=== PATIENT | male | born 1975 | race Caucasian/White ===

== ENCOUNTER 2016-07-14 16:07 | Emergency (ER) | payer MEDICARE, MEDICAID ==
[~2016-07-14] VITALS: Ht 180.3 cm; Wt 91.0 kg
[~2016-07-14 16:07] MED LIST: ALBU4TAB6 INH; ASPI-1035 PO; CINA90TA PO; CLOP75TA2 PO; FERR210T PO; FOLI1TAB87 PO; INSU100C3 SQ; LEVVL SQ; NATE120T PO; SEVE800T8 PO; SIMV40TA5 PO; TIOT18CA3 INH
[2016-07-14 16:26] VITALS: BP 167/80
== END 2016-07-14 20:25 | disposition home or self-care (01) ==
LOC: ER 18:51
DX: L08.9 Local infection of the skin and subcutaneous tissue, unspecified (principal); M79.645 Pain in left finger(s); I10 Essential (primary) hypertension; Z99.2 Dependence on renal dialysis; E11.9 Type 2 diabetes mellitus without complications; Z90.49 Acquired absence of other specified parts of digestive tract; Z90.89 Acquired absence of other organs; Z79.82 Long term (current) use of aspirin; Z79.4 Long term (current) use of insulin; Z79.899 Other long term (current) drug therapy
CPT/HCPCS: 99283

== ENCOUNTER 2016-09-27 15:23 | Emergency (ER) | payer MEDICARE, MEDICAID ==
[~2016-09-27] VITALS: Ht 180.3 cm; Wt 88.0 kg
[~2016-09-27 15:23] MED LIST changes: -ASPI-1035 PO; +ASPI-1159 PO; +CLOP75TA15 PO; -CLOP75TA2 PO
[2016-09-27 19:25] VITALS: BP 183/90
== END 2016-09-27 19:51 | disposition home or self-care (01) ==
LOC: ER 16:29
DX: S61.217D Laceration without foreign body of left little finger without damage to nail, subsequent encounter (principal); I25.2 Old myocardial infarction; Z90.49 Acquired absence of other specified parts of digestive tract; Z89.429 Acquired absence of other toe(s), unspecified side; Z98.49 Cataract extraction status, unspecified eye; E11.22 Type 2 diabetes mellitus with diabetic chronic kidney disease; E11.65 Type 2 diabetes mellitus with hyperglycemia; I12.0 Hypertensive chronic kidney disease with stage 5 chronic kidney disease or end stage renal disease; N18.6 End stage renal disease; Z99.2 Dependence on renal dialysis; Z79.4 Long term (current) use of insulin; W26.0XXD Contact with knife, subsequent encounter; Y92.098 Other place in other non-institutional residence as the place of occurrence of the external cause
CPT/HCPCS: 82962; 99283

== ENCOUNTER 2016-10-17 13:38 | Inpatient (IN) | payer MEDICARE, MEDICAID ==
[~2016-10-17] VITALS: Ht 180.3 cm; Wt 88.5 kg
[2016-10-17] MEDS ORDERED: DILTIAZEM HCL 5MG/ML 5ML VIAL IV ONE (14:15)
[2016-10-17 14:37] LABS: BASOPHILS % 0.5 % (0.0-2.0); EOSINOPHILS % 1.7 % (0.0-5.0); HEMATOCRIT. 41.2 % (42.0-52.0); HEMOGLOBIN. 14.3 g/dL (14.0-18.0); LYMPHOCYTES % 13.5 % (20.0-50.0); MEAN CORPUSCULAR HEMOGLOBIN 31.5 pg (28.0-32.0); MEAN CORPUSCULAR VOLUME 90.7 fL (80.0-94.0); MEAN PLATELET VOLUME 11.4 fl (7.4-10.4); MONOCYTES % 6.9 % (2.0-8.0); NEUTROPHILS % 77.4 % (40.0-76.0); PLATELET 66 x1000/uL (130-400); RED BLOOD CELL COUNT 4.54 mill/uL (4.7-6.1)
[2016-10-17 14:45] LABS: INR 1.1; PROTHROMBIN TIME 11.4 sec
[2016-10-17 14:55] LABS: CARBON DIOXIDE 26 mEq/L (21-32); CHLORIDE 91 mEq/L (98-107); TROPONIN I 0.04 ng/mL (0.00-0.04)
[2016-10-17] MEDS ORDERED: IPRATROPIUM/ALBUTEROL 0.5-3(2.5)MG/3ML NEB INH PRN (16:30)
[2016-10-17] MEDS ORDERED: GUAIFENESIN 200MG/10ML SUGAR FREE UDC PO PRN (16:30)
[2016-10-17] MEDS ORDERED: DEXTROSE 50% WATER 50ML SYRINGE IV PRN (16:30)
[2016-10-17] MEDS ORDERED: ONDANSETRON HCL 4MG/2ML VIAL IV PRN (16:30)
[2016-10-17] MEDS ORDERED: DIPHENHYDRAMINE 50MG/ML VIAL IV PRN (16:30)
[2016-10-17] MEDS ORDERED: ACETAMINOPHEN 325MG TABLET PO PRN (16:30)
[2016-10-17] MEDS ORDERED: INSULIN LISPRO 100 UNITS/ML SUBCUT SCH ×2 (18:45→21:00)
[2016-10-17] MEDS: BLOOD SUGAR DIAGNOSTIC STRIP TEST SCH ×2 (18:59→21:00)
[2016-10-17 20:00] VITALS: BP 156/71
[2016-10-17] MEDS: CARVEDILOL 3.125 MG TABLET PO SCH (20:57)
[2016-10-17 21:00] VITALS: BP 150/76
[2016-10-17] MEDS ORDERED: INSULIN DETEMIR UD 100 UNITS/ML SYR SUBCUT SCH (22:00)
[2016-10-17] MEDS: SODIUM CHLORIDE 0.9% INJ 3ML FLUSH IVF SCH (22:04)
[2016-10-17] MEDS: DILTIAZEM HCL 30MG TABLET PO SCH (22:04)
[2016-10-17] MEDS: INSULIN LISPRO 100 UNITS/ML SUBCUT SCH (22:13)
[2016-10-17] MEDS: INSULIN DETEMIR UD 100 UNITS/ML SYR SUBCUT SCH (22:13)
[2016-10-18] VITALS: BP 133/53
[2016-10-18 04:00] VITALS: BP 131/64
[2016-10-18] MEDS: SODIUM CHLORIDE 0.9% INJ 3ML FLUSH IVF SCH ×3 (05:45→21:04)
[2016-10-18] MEDS: DILTIAZEM HCL 30MG TABLET PO SCH ×3 (05:45→21:03)
[2016-10-18] MEDS: BLOOD SUGAR DIAGNOSTIC STRIP TEST SCH ×4 (06:21→21:02)
[2016-10-18] MEDS: INSULIN LISPRO 100 UNITS/ML SUBCUT SCH ×4 (08:26→21:04)
[2016-10-18] MEDS: ASPIRIN 81MG EC TABLET PO SCH (08:28)
[2016-10-18] MEDS: SEVELAMER CARBONATE 800 MG TABLET PO SCH ×3 (08:28→18:47)
[2016-10-18] MEDS: LOSARTAN POTASSIUM 50 MG TABLET PO SCH (08:28)
[2016-10-18] MEDS: FOLIC ACID/VITAMIN B COMP W-C TABLET PO SCH (08:29)
[2016-10-18] MEDS: CARVEDILOL 3.125 MG TABLET PO SCH ×2 (08:29→21:03)
[2016-10-18] MEDS: CINACALCET HCL 30MG TABLET PO SCH (08:29)
[2016-10-18] MEDS ORDERED: CLOPIDOGREL 75MG TABLET PO SCH (09:00)
[2016-10-18] MEDS ORDERED: POTASSIUM CHLORIDE 20MEQ TABLET SR PO NR (13:45)
[2016-10-18] MEDS ORDERED: LOPERAMIDE HCL 2MG CAPSULE PO SCH (16:15)
[2016-10-18 20:00] VITALS: BP 134/87
[2016-10-18] MEDS: ALPRAZOLAM 0.5 MG TABLET PO PRN (21:03)
[2016-10-18] MEDS: INSULIN DETEMIR UD 100 UNITS/ML SYR SUBCUT SCH (21:04)
[2016-10-19] VITALS (27 sets, daily range): BP systolic 123–183; BP diastolic 63–112
[2016-10-19] MEDS: SODIUM CHLORIDE 0.9% INJ 3ML FLUSH IVF SCH ×3 (05:21→22:00)
[2016-10-19 05:47] LABS: BASOPHILS % 0.6 % (0.0-2.0); EOSINOPHILS % 2.7 % (0.0-5.0); HEMATOCRIT. 42.7 % (42.0-52.0); HEMOGLOBIN. 14.6 g/dL (14.0-18.0); LYMPHOCYTES % 16.1 % (20.0-50.0); MEAN CORPUSCULAR HEMOGLOBIN 31.9 pg (28.0-32.0); MEAN PLATELET VOLUME 12.3 fl (7.4-10.4); NEUTROPHILS % 70.6 % (40.0-76.0); PLATELET 70 x1000/uL (130-400); RED BLOOD CELL COUNT 4.59 mill/uL (4.7-6.1); RED CELL DISTRIBUTION WIDTH 16.6 % (11.6-14.6)
[2016-10-19] MEDS: DILTIAZEM HCL 30MG TABLET PO SCH ×3 (06:24→21:03)
[2016-10-19] MEDS: BLOOD SUGAR DIAGNOSTIC STRIP TEST SCH ×4 (06:24→20:49)
[2016-10-19 07:03] LABS: CARBON DIOXIDE 25 mEq/L (21-32); CHLORIDE 95 mEq/L (98-107); CREATINE KINASE 28 IU/L (39-308); HDL CHOLESTEROL 24 mg/dL (40-59); LDL CHOLESTEROL 66 mg/dL (5-100); PHOSPHORUS 6.4 mg/dL (2.5-4.9)
[2016-10-19 07:07] LABS: TROPONIN I 0.75 ng/mL (0.00-0.04)
[2016-10-19] MEDS: ASPIRIN 81MG EC TABLET PO SCH (08:15)
[2016-10-19] MEDS: LOSARTAN POTASSIUM 50 MG TABLET PO SCH (08:15)
[2016-10-19] MEDS: FOLIC ACID/VITAMIN B COMP W-C TABLET PO SCH (08:15)
[2016-10-19] MEDS: CARVEDILOL 3.125 MG TABLET PO SCH (08:15)
[2016-10-19] MEDS: SEVELAMER CARBONATE 800 MG TABLET PO SCH ×3 (08:15→17:38)
[2016-10-19] MEDS: INSULIN LISPRO 100 UNITS/ML SUBCUT SCH ×4 (08:17→20:54)
[2016-10-19] MEDS: CINACALCET HCL 30MG TABLET PO SCH (08:27)
[2016-10-19] MEDS ORDERED: ASPIRIN/SOD BICARB/CITRIC ACID 324MG TAB EFF ONE (13:09)
[2016-10-19] MEDS ORDERED: MIDAZOLAM HCL 2 MG/2 ML VIAL ONE ×2 (13:19→13:45)
[2016-10-19] MEDS ORDERED: HEPARIN SODIUM 1,000 UNIT/1ML VIAL IV ONE ×3 (13:19→13:50)
[2016-10-19] MEDS ORDERED: FENTANYL CITRATE/PF 50MCG/ML 2ML VIAL ONE (13:19)
[2016-10-19] MEDS ORDERED: LIDOCAINE HCL 1% 20ML VIAL (Pyxis) INJ ONE (13:21)
[2016-10-19] MEDS ORDERED: IODIXANOL 320MG/ML 100 ML BOTTLE IV ONE ×2 (13:31→14:18)
[2016-10-19] MEDS ORDERED: IOVERSOL 240MG/ML 100ML BOTTLE IV ONE (13:53)
[2016-10-19] MEDS ORDERED: MORPHINE SULFATE 2 MG/ML CPJ (NOT FOR IM USE) IV PRN (15:00)
[2016-10-19] MEDS ORDERED: ACETAMINOPHEN 325MG TABLET PO PRN (15:00)
[2016-10-19] MEDS ORDERED: CLOPIDOGREL 75MG TABLET PO NR (15:00)
[2016-10-19] MEDS ORDERED: ATROPINE SULFATE 1MG/10ML SYR IV PRN (15:00)
[2016-10-19] MEDS ORDERED: METOPROLOL TARTRATE 25MG TABLET PO SCH (19:00)
[2016-10-19] MEDS: ALPRAZOLAM 0.5 MG TABLET PO PRN (19:00)
[2016-10-19] MEDS: INSULIN DETEMIR UD 100 UNITS/ML SYR SUBCUT SCH (21:05)
[2016-10-19] MEDS ORDERED: ATROPINE SULFATE 1MG/10ML SYR ONE (21:08)
[2016-10-20] VITALS (19 sets, daily range): BP systolic 114–161; BP diastolic 72–100
[2016-10-20] MEDS: DILTIAZEM HCL 30MG TABLET PO SCH ×3 (06:07→21:18)
[2016-10-20] MEDS: BLOOD SUGAR DIAGNOSTIC STRIP TEST SCH ×4 (06:07→20:16)
[2016-10-20] MEDS: INSULIN LISPRO 100 UNITS/ML SUBCUT SCH ×4 (07:01→21:16)
[2016-10-20 07:04] LABS: BASOPHILS % 0.3 % (0.0-2.0); HEMATOCRIT. 42.9 % (42.0-52.0); HEMOGLOBIN. 14.8 g/dL (14.0-18.0); LYMPHOCYTES % 17.6 % (20.0-50.0); MEAN CORPUSCULAR HEMOGLOBIN 31.7 pg (28.0-32.0); MEAN PLATELET VOLUME 11.5 fl (7.4-10.4); MONOCYTES % 8.4 % (2.0-8.0); NEUTROPHILS % 71.7 % (40.0-76.0); PLATELET 83 x1000/uL (130-400); RED BLOOD CELL COUNT 4.66 mill/uL (4.7-6.1); RED CELL DISTRIBUTION WIDTH 16.4 % (11.6-14.6)
[2016-10-20 07:26] LABS: CARBON DIOXIDE 24 mEq/L (21-32); CHLORIDE 94 mEq/L (98-107)
[2016-10-20 07:30] LABS: PHOSPHORUS 6.5 mg/dL (2.5-4.9)
[2016-10-20] MEDS: SEVELAMER CARBONATE 800 MG TABLET PO SCH ×4 (07:50→17:12)
[2016-10-20] MEDS: METOPROLOL TARTRATE 25MG TABLET PO SCH ×2 (09:00→20:16)
[2016-10-20] MEDS: ASPIRIN 81MG EC TABLET PO SCH (16:29)
[2016-10-20] MEDS: CLOPIDOGREL 75MG TABLET PO SCH (16:29)
[2016-10-20] MEDS: CINACALCET HCL 30MG TABLET PO SCH (16:30)
[2016-10-20] MEDS: FOLIC ACID/VITAMIN B COMP W-C TABLET PO SCH (16:30)
[2016-10-20] MEDS: LOSARTAN POTASSIUM 50 MG TABLET PO SCH (16:30)
[2016-10-20] MEDS: INSULIN DETEMIR UD 100 UNITS/ML SYR SUBCUT SCH (21:17)
[2016-10-21] VITALS (9 sets, daily range): BP systolic 102–153; BP diastolic 57–89
[2016-10-21] MEDS: DILTIAZEM HCL 30MG TABLET PO SCH ×2 (06:09→14:00)
[2016-10-21] MEDS: BLOOD SUGAR DIAGNOSTIC STRIP TEST SCH ×2 (06:09→11:30)
[2016-10-21 07:11] LABS: BASOPHILS % 0.5 % (0.0-2.0); HEMATOCRIT. 45.5 % (42.0-52.0); HEMOGLOBIN. 15.5 g/dL (14.0-18.0); LYMPHOCYTES % 13.7 % (20.0-50.0); MEAN CORPUSCULAR HEMOGLOBIN 31.5 pg (28.0-32.0); MEAN CORPUSCULAR VOLUME 92.5 fL (80.0-94.0); MEAN PLATELET VOLUME 12.8 fl (7.4-10.4); MONOCYTES % 8.1 % (2.0-8.0); NEUTROPHILS % 75.7 % (40.0-76.0); PLATELET 90 x1000/uL (130-400); RED BLOOD CELL COUNT 4.92 mill/uL (4.7-6.1); RED CELL DISTRIBUTION WIDTH 16.2 % (11.6-14.6)
[2016-10-21] MEDS: CLOPIDOGREL 75MG TABLET PO SCH (08:02)
[2016-10-21] MEDS: ASPIRIN 81MG EC TABLET PO SCH (08:03)
[2016-10-21] MEDS: CINACALCET HCL 30MG TABLET PO SCH (08:03)
[2016-10-21] MEDS: FOLIC ACID/VITAMIN B COMP W-C TABLET PO SCH (08:03)
[2016-10-21] MEDS: SEVELAMER CARBONATE 800 MG TABLET PO SCH ×2 (08:03→12:27)
[2016-10-21] MEDS: METOPROLOL TARTRATE 25MG TABLET PO SCH (08:03)
[2016-10-21] MEDS: LOSARTAN POTASSIUM 50 MG TABLET PO SCH (08:03)
[2016-10-21] MEDS: INSULIN LISPRO 100 UNITS/ML SUBCUT SCH ×2 (08:04→12:29)
== END 2016-10-21 14:50 | disposition home or self-care (01) | DRG 250 ==
LOC: ER 13:38 → ENRESERV 16:41 → 6WST 18:20 → 3WST 10-19 15:22
PROVIDERS: ADMIT Internal Medicine; ATTEND Internal Medicine
PROC: 5A1D60Z (ICD-10-PCS; 2016-10-18)
PROC: 4A023N7 Measurement of Cardiac Sampling and Pressure, Left Heart, Percutaneous Approach (ICD-10-PCS; principal; 2016-10-19)
PROC: B2111ZZ Fluoroscopy of Multiple Coronary Arteries using Low Osmolar Contrast (ICD-10-PCS; 2016-10-19)
PROC: B2131ZZ Fluoroscopy of Multiple Coronary Artery Bypass Grafts using Low Osmolar Contrast (ICD-10-PCS; 2016-10-19)
PROC: 02703ZZ Dilation of Coronary Artery, One Artery, Percutaneous Approach (ICD-10-PCS; 2016-10-19)
DX: T82.855A Stenosis of coronary artery stent, initial encounter (principal); N18.6 End stage renal disease; I21.4 Non-ST elevation (NSTEMI) myocardial infarction; E46 Unspecified protein-calorie malnutrition; I13.2 Hypertensive heart and chronic kidney disease with heart failure and with stage 5 chronic kidney disease, or end stage renal disease; N25.81 Secondary hyperparathyroidism of renal origin; I50.22 Chronic systolic (congestive) heart failure; I47.2 Ventricular tachycardia; I48.0 Paroxysmal atrial fibrillation; D63.1 Anemia in chronic kidney disease; E11.22 Type 2 diabetes mellitus with diabetic chronic kidney disease; E11.40 Type 2 diabetes mellitus with diabetic neuropathy, unspecified; E11.51 Type 2 diabetes mellitus with diabetic peripheral angiopathy without gangrene; E11.65 Type 2 diabetes mellitus with hyperglycemia; E78.00 Pure hypercholesterolemia, unspecified; E78.5 Hyperlipidemia, unspecified; D69.6 Thrombocytopenia, unspecified; F03.90 Unspecified dementia, unspecified severity, without behavioral disturbance, psychotic disturbance, mood disturbance, and anxiety; F41.9 Anxiety disorder, unspecified; I25.10 Atherosclerotic heart disease of native coronary artery without angina pectoris; I25.5 Ischemic cardiomyopathy; I48.2 Chronic atrial fibrillation; J44.9 Chronic obstructive pulmonary disease, unspecified; K57.90 Diverticulosis of intestine, part unspecified, without perforation or abscess without bleeding; Y83.1 Surgical operation with implant of artificial internal device as the cause of abnormal reaction of the patient, or of later complication, without mention of misadventure at the time of the procedure; Z83.3 Family history of diabetes mellitus; Z89.429 Acquired absence of other toe(s), unspecified side; Z99.2 Dependence on renal dialysis; I25.2 Old myocardial infarction; Z88.1 Allergy status to other antibiotic agents; Z90.49 Acquired absence of other specified parts of digestive tract; Z98.42 Cataract extraction status, left eye; Z98.41 Cataract extraction status, right eye; Z89.422 Acquired absence of other left toe(s)
CPT/HCPCS: 36415; 71010; 80048; 80053; 80061; 80069; 82550; 82553; 82962; 83036; 83690; 83735; 83880; 83921; 84100; 84443; 84484; 85025; 85347; 85379; 85610; 85730; 92920; 92978; 93005; 93306; 93459; 96374; 99291; C1725; C1726; C1753; C1769; C1887; C1893; J0461; J1644; J1815; J2250; J3010; J3490; J7030; Q9967

== ENCOUNTER 2016-10-24 09:28 | Inpatient (IN) | payer MEDICARE, MEDICAID ==
[~2016-10-24] VITALS: Ht 180.3 cm; Wt 90.7 kg
[2016-10-24 11:51] LABS: BASOPHILS % 0.7 % (0.0-2.0); EOSINOPHILS % 1.8 % (0.0-5.0); HEMATOCRIT. 42.3 % (42.0-52.0); HEMOGLOBIN. 14.4 g/dL (14.0-18.0); LYMPHOCYTES % 15.7 % (20.0-50.0); MEAN CORPUSCULAR HEMOGLOBIN 31.5 pg (28.0-32.0); MEAN CORPUSCULAR VOLUME 92.2 fL (80.0-94.0); MEAN PLATELET VOLUME 12.1 fl (7.4-10.4); MONOCYTES % 9.3 % (2.0-8.0); NEUTROPHILS % 72.5 % (40.0-76.0); PLATELET 77 x1000/uL (130-400); RED BLOOD CELL COUNT 4.59 mill/uL (4.7-6.1); RED CELL DISTRIBUTION WIDTH 16.5 % (11.6-14.6)
[2016-10-24 11:53] LABS: INR 1.1; PROTHROMBIN TIME 11.5 sec
[2016-10-24 12:00] LABS: CARBON DIOXIDE 27 mEq/L (21-32); CHLORIDE 94 mEq/L (98-107); TROPONIN I 0.09 ng/mL (0.00-0.04)
[2016-10-24] MEDS ORDERED: IOHEXOL-300 100 ML BOTTLE ONE (13:39)
[2016-10-24] MEDS ORDERED: SODIUM CHLORIDE 0.9% 10ML VIAL ONE (13:39)
[2016-10-24 14:25] VITALS: BP 174/69
[2016-10-24 14:45] VITALS: BP 171/89
[2016-10-24] MEDS ORDERED: ACETAMINOPHEN 325MG TABLET PO PRN (15:15)
[2016-10-24] MEDS ORDERED: DIPHENHYDRAMINE 50MG/ML VIAL IV PRN (15:15)
[2016-10-24] MEDS ORDERED: DEXTROSE 50% WATER 50ML SYRINGE IV PRN (15:15)
[2016-10-24] MEDS ORDERED: MAGNESIUM/ALUMINUM HYDROXIDE/SIMETHICONE 30ML UDC PO PRN (15:15)
[2016-10-24] MEDS ORDERED: ONDANSETRON HCL 4MG/2ML VIAL IV PRN (15:15)
[2016-10-24] MEDS ORDERED: ALPRAZOLAM 0.5 MG TABLET PO PRN (15:15)
[2016-10-24] MEDS: CLONIDINE 0.1MG TABLET PO PRN (15:58)
[2016-10-24 16:00] VITALS: BP 176/79
[2016-10-24] MEDS: BLOOD SUGAR DIAGNOSTIC STRIP TEST SCH ×2 (17:50→21:47)
[2016-10-24 18:00] VITALS: BP 126/68
[2016-10-24] MEDS: INSULIN LISPRO 100 UNITS/ML SUBCUT SCH ×2 (18:03→22:02)
[2016-10-24] MEDS: SEVELAMER CARBONATE 800 MG TABLET PO SCH (18:04)
[2016-10-24] MEDS ORDERED: LOPERAMIDE HCL 2MG CAPSULE PO PRN (19:30)
[2016-10-24 20:00] VITALS: BP 146/55
[2016-10-24] MEDS ORDERED: ATORVASTATIN CALCIUM 10MG TABLET PO SCH (21:00)
[2016-10-24] MEDS: SODIUM CHLORIDE 0.9% INJ 3ML FLUSH IVF SCH (21:54)
[2016-10-24] MEDS: ATORVASTATIN CALCIUM 20MG TABLET PO SCH (21:59)
[2016-10-24] MEDS: CARVEDILOL 3.125 MG TABLET PO SCH (22:00)
[2016-10-24] MEDS: INSULIN DETEMIR UD 100 UNITS/ML SYR SUBCUT SCH (22:03)
[2016-10-24 22:07] VITALS: BP 159/64
[2016-10-25] VITALS (12 sets, daily range): BP systolic 118–166; BP diastolic 45–90
[2016-10-25] MEDS: SODIUM CHLORIDE 0.9% INJ 3ML FLUSH IVF SCH ×3 (06:13→21:21)
[2016-10-25] MEDS: BLOOD SUGAR DIAGNOSTIC STRIP TEST SCH ×4 (06:13→21:17)
[2016-10-25 06:42] LABS: BASOPHILS % 0.6 % (0.0-2.0); EOSINOPHILS % 2.7 % (0.0-5.0); LYMPHOCYTES % 16.2 % (20.0-50.0); MEAN CORPUSCULAR HEMOGLOBIN 31.5 pg (28.0-32.0); MEAN CORPUSCULAR VOLUME 92.3 fL (80.0-94.0); MEAN PLATELET VOLUME 11.4 fl (7.4-10.4); MONOCYTES % 9.6 % (2.0-8.0); NEUTROPHILS % 70.9 % (40.0-76.0); PLATELET 71 x1000/uL (130-400); RED BLOOD CELL COUNT 4.44 mill/uL (4.7-6.1); RED CELL DISTRIBUTION WIDTH 16.3 % (11.6-14.6)
[2016-10-25] MEDS: INSULIN LISPRO 100 UNITS/ML SUBCUT SCH ×4 (07:20→21:00)
[2016-10-25] MEDS: SEVELAMER CARBONATE 800 MG TABLET PO SCH ×3 (07:20→17:49)
[2016-10-25] MEDS ORDERED: FOLIC ACID/VITAMIN B COMP W-C TABLET PO SCH (09:00)
[2016-10-25] MEDS: LOSARTAN POTASSIUM 50 MG TABLET PO SCH (09:56)
[2016-10-25] MEDS: FOLIC ACID/VITAMIN B COMP W-C TABLET PO SCH (09:56)
[2016-10-25] MEDS: ASPIRIN 81MG EC TABLET PO SCH (09:57)
[2016-10-25] MEDS: CLOPIDOGREL 75MG TABLET PO SCH (09:57)
[2016-10-25] MEDS: CARVEDILOL 3.125 MG TABLET PO SCH ×2 (09:57→21:41)
[2016-10-25] MEDS ORDERED: DESMOPRESSIN ACETATE 4MCG/ML AMP IV ONE ×2 (11:00)
[2016-10-25] MEDS ORDERED: LIDOCAINE HCL 1% 20ML VIAL (Pyxis) INJ ONE (11:01)
[2016-10-25] MEDS ORDERED: SODIUM BICARBONATE 4.2% 5 MEQ/10 ML DISP.SYRIN IV ONE (11:01)
[2016-10-25] MEDS ORDERED: DESMOPRESSIN ACETATE 28 MCG in SODIUM CHLORIDE 0.9% 50 ML IV SCH (11:30)
[2016-10-25] MEDS ORDERED: THROMBIN (BOVINE) 5000 UNITS/VIAL TOP SCH (13:30)
[2016-10-25] MEDS: ATORVASTATIN CALCIUM 20MG TABLET PO SCH (21:41)
[2016-10-25] MEDS: INSULIN DETEMIR UD 100 UNITS/ML SYR SUBCUT SCH (21:44)
[2016-10-26] VITALS (10 sets, daily range): BP systolic 131–178; BP diastolic 73–96
[2016-10-26] MEDS: SODIUM CHLORIDE 0.9% INJ 3ML FLUSH IVF SCH ×2 (06:15→14:15)
[2016-10-26] MEDS: BLOOD SUGAR DIAGNOSTIC STRIP TEST SCH ×2 (06:19→11:44)
[2016-10-26] MEDS: INSULIN LISPRO 100 UNITS/ML SUBCUT SCH ×2 (07:50→13:39)
[2016-10-26] MEDS: SEVELAMER CARBONATE 800 MG TABLET PO SCH ×2 (07:51→13:39)
[2016-10-26] MEDS: ASPIRIN 81MG EC TABLET PO SCH (08:31)
[2016-10-26] MEDS: CLOPIDOGREL 75MG TABLET PO SCH (08:31)
[2016-10-26] MEDS: CARVEDILOL 3.125 MG TABLET PO SCH (08:31)
[2016-10-26] MEDS: LOSARTAN POTASSIUM 50 MG TABLET PO SCH (08:31)
[2016-10-26] MEDS: FOLIC ACID/VITAMIN B COMP W-C TABLET PO SCH (08:31)
[2016-10-26 10:00] LABS: BASOPHILS % 0.6 % (0.0-2.0); EOSINOPHILS % 2.3 % (0.0-5.0); HEMATOCRIT. 40.9 % (42.0-52.0); HEMOGLOBIN. 13.9 g/dL (14.0-18.0); LYMPHOCYTES % 12.5 % (20.0-50.0); MEAN CORPUSCULAR HEMOGLOBIN 31.5 pg (28.0-32.0); MEAN CORPUSCULAR VOLUME 92.3 fL (80.0-94.0); MEAN PLATELET VOLUME 11.6 fl (7.4-10.4); MONOCYTES % 7.9 % (2.0-8.0); NEUTROPHILS % 76.7 % (40.0-76.0); PLATELET 71 x1000/uL (130-400); RED BLOOD CELL COUNT 4.42 mill/uL (4.7-6.1); RED CELL DISTRIBUTION WIDTH 16.1 % (11.6-14.6)
[2016-10-26] MEDS: CLONIDINE 0.1MG TABLET PO PRN (14:14)
== END 2016-10-26 16:56 | disposition home or self-care (01) | DRG 919 ==
LOC: ER 09:28 → 3WST 11:49 → EDBEDREQTM 11:58 → EDBEDREQ 11:58 → ENRESERV 12:05
PROVIDERS: ADMIT Internal Medicine; ATTEND Internal Medicine
PROC: 5A1D00Z (ICD-10-PCS; 2016-10-25)
PROC: 3E053GC Introduction of Other Therapeutic Substance into Peripheral Artery, Percutaneous Approach (ICD-10-PCS; principal; 2016-10-26)
DX: L76.32 Postprocedural hematoma of skin and subcutaneous tissue following other procedure (principal); N18.6 End stage renal disease; D68.59 Other primary thrombophilia; I42.9 Cardiomyopathy, unspecified; I50.22 Chronic systolic (congestive) heart failure; I13.2 Hypertensive heart and chronic kidney disease with heart failure and with stage 5 chronic kidney disease, or end stage renal disease; N25.81 Secondary hyperparathyroidism of renal origin; I72.4 Aneurysm of artery of lower extremity; E11.65 Type 2 diabetes mellitus with hyperglycemia; E11.21 Type 2 diabetes mellitus with diabetic nephropathy; D63.1 Anemia in chronic kidney disease; D69.6 Thrombocytopenia, unspecified; E11.22 Type 2 diabetes mellitus with diabetic chronic kidney disease; E11.40 Type 2 diabetes mellitus with diabetic neuropathy, unspecified; E78.5 Hyperlipidemia, unspecified; I25.10 Atherosclerotic heart disease of native coronary artery without angina pectoris; E11.51 Type 2 diabetes mellitus with diabetic peripheral angiopathy without gangrene; I48.0 Paroxysmal atrial fibrillation; Z83.3 Family history of diabetes mellitus; Z95.5 Presence of coronary angioplasty implant and graft; I25.2 Old myocardial infarction; Z79.4 Long term (current) use of insulin; Z88.1 Allergy status to other antibiotic agents; Z99.2 Dependence on renal dialysis; Z79.899 Other long term (current) drug therapy; Z90.49 Acquired absence of other specified parts of digestive tract; Z79.01 Long term (current) use of anticoagulants
CPT/HCPCS: 20611; 36002; 36415; 71010; 74177; 76857; 80048; 80053; 82962; 83036; 83880; 84484; 85025; 85610; 85651; 87040; 93005; 93971; 99285; A4216; J1815; J2597; J3490; J7030; Q9967

== ENCOUNTER 2016-11-18 21:56 | Emergency (ER) | payer MEDICARE, MEDICAID ==
[~2016-11-18] VITALS: Ht 180.3 cm; Wt 90.0 kg
[2016-11-18] MEDS ORDERED: KETOROLAC 60MG/2ML VIAL IM ONE (23:00)
[2016-11-18 23:49] VITALS: BP 131/86
== END 2016-11-19 00:20 | disposition home or self-care (01) ==
LOC: ER 22:00
DX: M75.91 Shoulder lesion, unspecified, right shoulder (principal); I12.0 Hypertensive chronic kidney disease with stage 5 chronic kidney disease or end stage renal disease; E11.22 Type 2 diabetes mellitus with diabetic chronic kidney disease; N18.6 End stage renal disease; I25.2 Old myocardial infarction; I48.91 Unspecified atrial fibrillation; Z99.2 Dependence on renal dialysis; Z88.1 Allergy status to other antibiotic agents; Z79.4 Long term (current) use of insulin; Z79.01 Long term (current) use of anticoagulants; Z79.82 Long term (current) use of aspirin
CPT/HCPCS: 73030; 96372; 99284; J1885

== ENCOUNTER 2017-01-04 07:38 | Day surgery (SDC) | payer MEDICARE, MEDICAID ==
[~2017-01-04] VITALS: Ht 180.3 cm; Wt 90.7 kg
[2017-01-04] MEDS ORDERED: ASPIRIN/SOD BICARB/CITRIC ACID 324MG TAB EFF ONE (08:57)
[2017-01-04 09:04] LABS: BASOPHILS % 0.4 % (0.0-2.0); EOSINOPHILS % 1.5 % (0.0-5.0); HEMATOCRIT. 41.7 % (42.0-52.0); HEMOGLOBIN. 14.1 g/dL (14.0-18.0); LYMPHOCYTES % 10.9 % (20.0-50.0); MEAN CORPUSCULAR HEMOGLOBIN 29.5 pg (28.0-32.0); MEAN CORPUSCULAR VOLUME 87.5 fL (80.0-94.0); MEAN PLATELET VOLUME 11.8 fl (7.4-10.4); MONOCYTES % 5.9 % (2.0-8.0); NEUTROPHILS % 81.3 % (40.0-76.0); PLATELET 81 x1000/uL (130-400); RED BLOOD CELL COUNT 4.77 mill/uL (4.7-6.1); RED CELL DISTRIBUTION WIDTH 16.3 % (11.6-14.6)
[2017-01-04] MEDS ORDERED: IODIXANOL 320MG/ML 100 ML BOTTLE IV ONE (09:07)
[2017-01-04] MEDS ORDERED: LIDOCAINE HCL 1% 20ML VIAL (Pyxis) INJ ONE (09:07)
[2017-01-04] MEDS ORDERED: FENTANYL CITRATE/PF 50MCG/ML 2ML VIAL ONE (09:09)
[2017-01-04] MEDS ORDERED: MIDAZOLAM HCL 2 MG/2 ML VIAL ONE ×2 (09:09→10:13)
[2017-01-04] MEDS ORDERED: LOSA1TAB34 PO (09:11)
[2017-01-04] MEDS ORDERED: FOLI0.8T23 PO (09:11)
[2017-01-04 09:13] LABS: INR 1.1; PARTIAL THROMBOPLASTIN TIME 26.1 sec (23.4-31.0); PROTHROMBIN TIME 11.7 sec (9.4-11.6)
[2017-01-04] MEDS ORDERED: NICARDIPINE 100MCG/ML 10ML VIAL (CATH LAB) IV ONE (10:00)
[2017-01-04] MEDS ORDERED: HEPARIN SODIUM 1,000 UNIT/1ML VIAL IV ONE (10:00)
[2017-01-04] MEDS ORDERED: NITROGLYCERIN 50MCG/ML 10ML VIAL (CATH LAB) IV ONE (10:00)
[2017-01-04] MEDS ORDERED: ATROPINE SULFATE 0.1MG/ML 10ML DISP.SYRIN ONE (10:04)
[2017-01-04] MEDS ORDERED: MORPHINE SULFATE 4 MG/ML CPJ (NOT FOR IM USE) IV PRN (16:00)
[2017-01-04] MEDS ORDERED: ONDANSETRON HCL 4MG/2ML VIAL IV PRN (16:00)
[2017-01-04] MEDS ORDERED: ACETAMINOPHEN 325MG TABLET PO PRN (16:00)
[2017-01-04] MEDS ORDERED: ATROPINE SULFATE 1MG/10ML SYR IV PRN (16:00)
== END 2017-01-04 15:00 | disposition home or self-care (01) ==
LOC: CCL 07:38
PROVIDERS: ATTEND Specialist
DX: I25.10 Atherosclerotic heart disease of native coronary artery without angina pectoris (principal)
CPT/HCPCS: 36415; 80048; 85025; 85610; 85730; 93458; 99152; 99153; C1769; C1887; C1893; J1644; J2250; J3010; J3490; Q9967; J0461

== ENCOUNTER 2017-01-11 09:26 | Emergency (ER) | payer MEDICARE, MEDICAID ==
[~2017-01-11] VITALS: Ht 180.3 cm; Wt 88.0 kg
[~2017-01-11 09:26] MED LIST changes: +FOLI0.8T23 PO; +LOSA1TAB34 PO
[2017-01-11 09:59] VITALS: BP 145/91
[2017-01-11 10:04] LABS: BASOPHILS % 0.8 % (0.0-2.0); EOSINOPHILS % 1.8 % (0.0-5.0); HEMATOCRIT. 37.1 % (42.0-52.0); HEMOGLOBIN. 12.6 g/dL (14.0-18.0); LYMPHOCYTES % 13.4 % (20.0-50.0); MEAN CORPUSCULAR HEMOGLOBIN 29.3 pg (28.0-32.0); MEAN CORPUSCULAR VOLUME 86.4 fL (80.0-94.0); MEAN PLATELET VOLUME 11.2 fl (7.4-10.4); MONOCYTES % 10.2 % (2.0-8.0); NEUTROPHILS % 73.8 % (40.0-76.0); PLATELET 83 x1000/uL (130-400); RED BLOOD CELL COUNT 4.29 mill/uL (4.7-6.1); RED CELL DISTRIBUTION WIDTH 15.8 % (11.6-14.6)
[2017-01-11 10:15] LABS: CARBON DIOXIDE 32 mEq/L (21-32); CHLORIDE 95 mEq/L (98-107)
[2017-01-11 10:36] LABS: INR 1.1; PROTHROMBIN TIME 11.7 sec (9.4-11.6)
== END 2017-01-11 11:45 | disposition home or self-care (01) ==
LOC: ER 09:50
DX: T82.838A Hemorrhage due to vascular prosthetic devices, implants and grafts, initial encounter (principal); Y84.1 Kidney dialysis as the cause of abnormal reaction of the patient, or of later complication, without mention of misadventure at the time of the procedure; E11.9 Type 2 diabetes mellitus without complications; I10 Essential (primary) hypertension; I48.91 Unspecified atrial fibrillation; I25.2 Old myocardial infarction; I25.10 Atherosclerotic heart disease of native coronary artery without angina pectoris; Z99.2 Dependence on renal dialysis; Z88.1 Allergy status to other antibiotic agents; Z79.4 Long term (current) use of insulin; Z79.82 Long term (current) use of aspirin; Z98.62 Peripheral vascular angioplasty status
CPT/HCPCS: 36415; 80053; 85025; 85610; 99284

== ENCOUNTER 2017-06-05 22:36 | Inpatient (IN) | payer MEDICARE, MEDICAID ==
[~2017-06-05] VITALS: Ht 180.3 cm; Wt 94.6 kg
[2017-06-05] MEDS ORDERED: ASPIRIN 81MG TABLET PO ONE (23:15)
[2017-06-05] MEDS ORDERED: LABETALOL HCL 20MG/4ML CARPUJECT IV ONE (23:15)
[2017-06-05] MEDS ORDERED: NITROGLYCERIN OINT 1GM/INCH UDPKT TD ONE (23:15)
[2017-06-05] MEDS ORDERED: ONDANSETRON HCL 4MG/2ML VIAL IV STA (23:24)
[2017-06-05] MEDS ORDERED: LABETALOL 5MG/ML SYR 20 MG/4 ML SYRINGE IV ONE (23:41)
[2017-06-06 00:27] LABS: BASOPHILS % 0.6 % (0.0-2.0); EOSINOPHILS % 1.3 % (0.0-5.0); HEMOGLOBIN. 13.5 g/dL (14.0-18.0); LYMPHOCYTES % 10.3 % (20.0-50.0); MEAN CORPUSCULAR HEMOGLOBIN 29.2 pg (28.0-32.0); MEAN CORPUSCULAR VOLUME 88.7 fL (80.0-94.0); MEAN PLATELET VOLUME 11.7 fl (7.4-10.4); MONOCYTES % 6.4 % (2.0-8.0); NEUTROPHILS % 81.4 % (40.0-76.0); PLATELET 116 x1000/uL (130-400); RED BLOOD CELL COUNT 4.62 mill/uL (4.7-6.1); RED CELL DISTRIBUTION WIDTH 16.8 % (11.6-14.6)
[2017-06-06] MEDS ORDERED: LEVOFLOXACIN 750MG PREMIX 150 ML IV NR (00:30)
[2017-06-06] MEDS ORDERED: INSULIN REGULAR (HUMULIN R) 300UNITS/3ML IV NR (00:30)
[2017-06-06 00:36] LABS: INR 1.1; PROTHROMBIN TIME 11.4 sec (9.4-11.6)
[2017-06-06 00:47] LABS: CHLORIDE 90 mEq/L (98-107); ETHANOL BLOOD < 10 mg/dL
[2017-06-06 00:53] LABS: TROPONIN I 0.09 ng/mL (0.00-0.04)
[2017-06-06 15:28] VITALS: BP 159/69
[2017-06-06 16:00] VITALS: BP 134/71
[2017-06-06] MEDS ORDERED: CLONIDINE 0.1MG TABLET PO PRN (16:00)
[2017-06-06] MEDS ORDERED: DEXTROSE 50% WATER 50ML SYRINGE IV PRN (16:45)
[2017-06-06] MEDS ORDERED: ONDANSETRON HCL 4MG/2ML VIAL IV PRN (16:45)
[2017-06-06] MEDS ORDERED: IPRATROPIUM/ALBUTEROL 0.5-3(2.5)MG/3ML NEB HHN PRN (16:45)
[2017-06-06] MEDS ORDERED: MORPHINE SULFATE 4 MG/ML CPJ (NOT FOR IM USE) IV NR (16:53)
[2017-06-06] MEDS ORDERED: HYDROCODONE/ACETAMINOPHEN 5/325MG TABLET PO PRN (17:00)
[2017-06-06] MEDS: BLOOD SUGAR DIAGNOSTIC STRIP TEST SCH ×2 (18:11→20:41)
[2017-06-06] MEDS: LOSARTAN POTASSIUM 25 MG TABLET PO SCH (18:17)
[2017-06-06] MEDS: SEVELAMER CARBONATE 800 MG TABLET PO SCH (18:17)
[2017-06-06] MEDS: CLOPIDOGREL 75MG TABLET PO SCH (18:18)
[2017-06-06] MEDS: INSULIN LISPRO 100 UNITS/ML SUBCUT SCH ×2 (18:18→20:42)
[2017-06-06 20:00] VITALS: BP 147/63
[2017-06-06] MEDS: CARVEDILOL 3.125 MG TABLET PO SCH (21:18)
[2017-06-06] MEDS: INSULIN GLARGINE UD 100 UNITS/ML SYR SUBCUT SCH (21:44)
[2017-06-07] VITALS: BP 149/73
[2017-06-07 04:00] VITALS: BP 118/66
[2017-06-07 07:05] LABS: BASOPHILS % 0.3 % (0.0-2.0); EOSINOPHILS % 1.7 % (0.0-5.0); HEMATOCRIT. 38.7 % (42.0-52.0); HEMOGLOBIN. 12.9 g/dL (14.0-18.0); LYMPHOCYTES % 9.3 % (20.0-50.0); MEAN CORPUSCULAR HEMOGLOBIN 29.5 pg (28.0-32.0); MEAN CORPUSCULAR VOLUME 88.6 fL (80.0-94.0); MEAN PLATELET VOLUME 11.3 fl (7.4-10.4); MONOCYTES % 7.7 % (2.0-8.0); PLATELET 104 x1000/uL (130-400); RED BLOOD CELL COUNT 4.37 mill/uL (4.7-6.1); RED CELL DISTRIBUTION WIDTH 16.6 % (11.6-14.6)
[2017-06-07] MEDS: BLOOD SUGAR DIAGNOSTIC STRIP TEST SCH ×4 (07:26→21:00)
[2017-06-07] MEDS: INSULIN LISPRO 100 UNITS/ML SUBCUT SCH ×4 (07:51→22:56)
[2017-06-07 08:00] VITALS: BP 136/72
[2017-06-07] MEDS: CINACALCET HCL 90MG TABLET PO SCH (08:18)
[2017-06-07] MEDS: SEVELAMER CARBONATE 800 MG TABLET PO SCH ×3 (08:18→17:54)
[2017-06-07] MEDS: LOSARTAN POTASSIUM 25 MG TABLET PO SCH ×2 (08:19→16:06)
[2017-06-07] MEDS: CLOPIDOGREL 75MG TABLET PO SCH (08:19)
[2017-06-07] MEDS: FOLIC ACID/VITAMIN B COMP W-C TABLET PO SCH (08:19)
[2017-06-07] MEDS: CARVEDILOL 3.125 MG TABLET PO SCH ×2 (08:20→22:46)
[2017-06-07] MEDS: ENOXAPARIN 30MG/0.3ML SYR SUBCUT SCH (08:20)
[2017-06-07 08:38] LABS: CHLORIDE 94 mEq/L (98-107)
[2017-06-07 08:48] LABS: CREATINE KINASE 33 IU/L (39-308); CREATINE KINASE MB FRACTION 2.2 ng/mL (0.5-3.6); HDL CHOLESTEROL 24 mg/dL (40-59); LDL CHOLESTEROL 71 mg/dL (5-100); TROPONIN I 0.07 ng/mL (0.00-0.04)
[2017-06-07] MEDS ORDERED: ASPIRIN 81MG EC TABLET PO SCH (09:00)
[2017-06-07] MEDS ORDERED: DOCUSATE SODIUM 250MG CAPSULE PO SCH (09:00)
[2017-06-07] MEDS: INSULIN GLARGINE UD 100 UNITS/ML SYR SUBCUT SCH ×2 (10:51→22:56)
[2017-06-07 12:00] VITALS: BP 157/77
[2017-06-07] MEDS ORDERED: ALPRAZOLAM 0.5 MG TABLET PO PRN (12:00)
[2017-06-07 16:00] VITALS: BP 142/81
[2017-06-07] MEDS: ASPIRIN 81MG EC TABLET PO SCH (16:06)
[2017-06-07 20:00] VITALS: BP 151/80
[2017-06-08 04:00] VITALS: BP 111/66
[2017-06-08 06:10] LABS: BASOPHILS % 0.5 % (0.0-2.0); EOSINOPHILS % 1.9 % (0.0-5.0); HEMATOCRIT. 38.8 % (42.0-52.0); HEMOGLOBIN. 12.9 g/dL (14.0-18.0); LYMPHOCYTES % 10.3 % (20.0-50.0); MEAN CORPUSCULAR HEMOGLOBIN 29.6 pg (28.0-32.0); MEAN PLATELET VOLUME 12.8 fl (7.4-10.4); MONOCYTES % 8.7 % (2.0-8.0); NEUTROPHILS % 78.6 % (40.0-76.0); PLATELET 129 x1000/uL (130-400); RED BLOOD CELL COUNT 4.36 mill/uL (4.7-6.1); RED CELL DISTRIBUTION WIDTH 16.5 % (11.6-14.6)
[2017-06-08] MEDS: INSULIN LISPRO 100 UNITS/ML SUBCUT SCH (06:32)
[2017-06-08] MEDS: BLOOD SUGAR DIAGNOSTIC STRIP TEST SCH (06:32)
[2017-06-08 07:11] LABS: CHLORIDE 102 mEq/L (98-107)
[2017-06-08 08:00] VITALS: BP 128/77
[2017-06-08] MEDS: CLOPIDOGREL 75MG TABLET PO SCH (08:04)
[2017-06-08] MEDS: FOLIC ACID/VITAMIN B COMP W-C TABLET PO SCH (08:04)
[2017-06-08] MEDS: CINACALCET HCL 90MG TABLET PO SCH (08:04)
[2017-06-08] MEDS: ENOXAPARIN 30MG/0.3ML SYR SUBCUT SCH (08:04)
[2017-06-08] MEDS: ASPIRIN 81MG EC TABLET PO SCH (08:04)
[2017-06-08] MEDS: LOSARTAN POTASSIUM 25 MG TABLET PO SCH (08:04)
[2017-06-08] MEDS: CARVEDILOL 3.125 MG TABLET PO SCH (08:22)
[2017-06-08 09:21] VITALS: BP 128/77
== END 2017-06-08 10:31 | disposition home or self-care (01) | DRG 291 ==
LOC: ER 22:36 → 7WST 06-06 01:48 → EDBEDREQ 06-06 01:56 → EDBEDREQDT 06-06 01:56 → EDBEDREQTM 06-06 01:56 → ENRESERV 06-06 13:01 → 7WST 06-06 15:50
PROVIDERS: ADMIT Internal Medicine; ATTEND Internal Medicine
PROC: 5A1D70Z Performance of Urinary Filtration, Intermittent, Less than 6 Hours Per Day (ICD-10-PCS; principal; 2017-06-07)
DX: I13.2 Hypertensive heart and chronic kidney disease with heart failure and with stage 5 chronic kidney disease, or end stage renal disease (principal); J96.00 Acute respiratory failure, unspecified whether with hypoxia or hypercapnia; E11.22 Type 2 diabetes mellitus with diabetic chronic kidney disease; D69.6 Thrombocytopenia, unspecified; E44.0 Moderate protein-calorie malnutrition; E87.1 Hypo-osmolality and hyponatremia; E87.8 Other disorders of electrolyte and fluid balance, not elsewhere classified; N18.6 End stage renal disease; I50.9 Heart failure, unspecified; I48.0 Paroxysmal atrial fibrillation; E78.00 Pure hypercholesterolemia, unspecified; F41.9 Anxiety disorder, unspecified; D72.829 Elevated white blood cell count, unspecified; I25.5 Ischemic cardiomyopathy; I42.0 Dilated cardiomyopathy; I25.10 Atherosclerotic heart disease of native coronary artery without angina pectoris; I25.2 Old myocardial infarction; Z95.5 Presence of coronary angioplasty implant and graft; Z99.2 Dependence on renal dialysis; Z88.1 Allergy status to other antibiotic agents; Z79.02 Long term (current) use of antithrombotics/antiplatelets; Z79.899 Other long term (current) drug therapy; Z90.49 Acquired absence of other specified parts of digestive tract; Z68.29 Body mass index [BMI] 29.0-29.9, adult
CPT/HCPCS: 36415; 71045; 80053; 80061; 82550; 82553; 82962; 83605; 83690; 83735; 84484; 85025; 85379; 85610; 87015; 87040; 87045; 87427; 87449; 87493; 87804; 93005; 93970; 96365; 96366; 96375; 99291; G0482; J1650; J1815; J1956; J2405; J3490; J7030

== ENCOUNTER 2017-10-01 20:20 | Inpatient (IN) | payer MEDICARE, MEDICAID ==
[~2017-10-01] VITALS: Ht 180.3 cm; Wt 91.6 kg
[2017-10-01] MEDS ORDERED: ACETAMINOPHEN WITH CODEINE 300/30MG TABLET PO ONE (23:30)
[2017-10-01] MEDS ORDERED: TETANUS, DIPHTHERIA, PERTUSSIS VAC/PF 0.5ML (>7YR OLD) IM ONE (23:30)
[2017-10-02] MEDS ORDERED: SODIUM CHLORIDE 0.9% 1,000 ML IV ONE (00:26)
[2017-10-02] MEDS ORDERED: VANCOMYCIN 1 G PREMIX 200 ML IV SCH (00:30)
[2017-10-02] MEDS ORDERED: DIPHENHYDRAMINE 50MG/ML VIAL IV ONE (00:30)
[2017-10-02] MEDS ORDERED: PIPERACILLIN/TAZOBACTAM 3.375GM/50ML PREMIX IV SCH (01:14)
[2017-10-02 02:43] LABS: BASOPHILS % 0.7 % (0.0-2.0); EOSINOPHILS % 1.7 % (0.0-5.0); HEMATOCRIT. 42.3 % (42.0-52.0); HEMOGLOBIN. 14.1 g/dL (14.0-18.0); LYMPHOCYTES % 17.5 % (20.0-50.0); MEAN CORPUSCULAR HEMOGLOBIN 28.5 pg (28.0-32.0); MEAN CORPUSCULAR VOLUME 85.5 fL (80.0-94.0); MEAN PLATELET VOLUME 11.6 fl (7.4-10.4); MONOCYTES % 6.7 % (2.0-8.0); NEUTROPHILS % 73.4 % (40.0-76.0); PLATELET 95 x1000/uL (130-400); RED BLOOD CELL COUNT 4.95 mill/uL (4.7-6.1); RED CELL DISTRIBUTION WIDTH 15.6 % (11.6-14.6)
[2017-10-02 02:50] LABS: CHLORIDE 94 mEq/L (98-107)
[2017-10-02] MEDS ORDERED: ACETAMINOPHEN 325MG TABLET PO PRN (06:45)
[2017-10-02] MEDS ORDERED: CLONIDINE 0.1MG TABLET PO PRN (06:45)
[2017-10-02] MEDS ORDERED: DOCUSATE SODIUM 100MG CAPSULE PO PRN (06:45)
[2017-10-02] MEDS ORDERED: MAGNESIUM/ALUMINUM HYDROXIDE/SIMETHICONE 30ML UDC PO PRN (06:45)
[2017-10-02] MEDS ORDERED: DEXTROSE 50% WATER 50ML SYRINGE IV PRN (06:45)
[2017-10-02] MEDS ORDERED: DIPHENHYDRAMINE 50MG/ML VIAL IV PRN (06:45)
[2017-10-02] MEDS ORDERED: ONDANSETRON HCL 4MG/2ML VIAL IV PRN (06:45)
[2017-10-02] MEDS ORDERED: ACETAMINOPHEN 650MG SUPP PR PRN (06:45)
[2017-10-02] MEDS ORDERED: GUAIFENESIN 200MG/10ML SUGAR FREE UDC PO PRN (06:45)
[2017-10-02] MEDS ORDERED: HYDROCODONE/ACETAMINOPHEN 5/325MG TABLET PO PRN (06:45)
[2017-10-02] MEDS ORDERED: ACETAMINOPHEN 650MG/20.3ML UDC GT PRN (06:45)
[2017-10-02] MEDS ORDERED: CEFTRIAXONE 1 G PREMIX 50 ML IV SCH (07:03)
[2017-10-02 07:32] LABS: INR 1.1; PROTHROMBIN TIME 11.7 sec (9.4-11.6)
[2017-10-02 08:20] VITALS: BP 151/83
[2017-10-02] MEDS: BLOOD SUGAR DIAGNOSTIC STRIP TEST SCH ×4 (09:00→20:38)
[2017-10-02] MEDS ORDERED: IPRATROPIUM/ALBUTEROL 0.5-3(2.5)MG/3ML NEB INH PRN (10:00)
[2017-10-02] MEDS: HYDROCODONE/ACETAMINOPHEN 10/325MG TABLET PO PRN ×2 (10:12→20:04)
[2017-10-02] MEDS: INSULIN LISPRO 100 UNITS/ML SUBCUT SCH ×4 (10:16→20:41)
[2017-10-02] MEDS: SODIUM CHLORIDE 0.9% INJ 3ML FLUSH IVF SCH ×2 (14:47→21:03)
[2017-10-02 16:00] VITALS: BP 139/73
[2017-10-02 18:10] LABS: CREATINE KINASE 38 IU/L (39-308)
[2017-10-02 18:11] LABS: CREATINE KINASE MB FRACTION 1.7 ng/mL (0.5-3.6)
[2017-10-02] MEDS ORDERED: ALPR-340 MT (18:45)
[2017-10-02] MEDS ORDERED: CARV3.1242 MT (18:45)
[2017-10-02 20:00] VITALS: BP 140/70
[2017-10-03] VITALS (7 sets, daily range): BP systolic 136–168; BP diastolic 64–77
[2017-10-03] MEDS: BLOOD SUGAR DIAGNOSTIC STRIP TEST SCH ×4 (06:19→20:09)
[2017-10-03] MEDS: SODIUM CHLORIDE 0.9% INJ 3ML FLUSH IVF SCH ×3 (06:19→21:19)
[2017-10-03] MEDS: INSULIN LISPRO 100 UNITS/ML SUBCUT SCH ×4 (06:24→20:24)
[2017-10-03 07:44] LABS: BASOPHILS % 0.6 % (0.0-2.0); EOSINOPHILS % 2.7 % (0.0-5.0); HEMATOCRIT. 40.4 % (42.0-52.0); HEMOGLOBIN. 13.5 g/dL (14.0-18.0); LYMPHOCYTES % 16.9 % (20.0-50.0); MEAN CORPUSCULAR HEMOGLOBIN 28.4 pg (28.0-32.0); MEAN PLATELET VOLUME 11.8 fl (7.4-10.4); MONOCYTES % 6.3 % (2.0-8.0); NEUTROPHILS % 73.5 % (40.0-76.0); PLATELET 108 x1000/uL (130-400); RED BLOOD CELL COUNT 4.75 mill/uL (4.7-6.1); RED CELL DISTRIBUTION WIDTH 15.7 % (11.6-14.6)
[2017-10-03] MEDS: CEFTRIAXONE 1 G PREMIX 50 ML IV SCH ×2 (08:00→14:07)
[2017-10-03 08:03] LABS: CHLORIDE 94 mEq/L (98-107)
[2017-10-03 08:25] LABS: HDL CHOLESTEROL 24 mg/dL (40-59)
[2017-10-03 08:29] LABS: LDL CHOLESTEROL 78 mg/dL (5-100)
[2017-10-03 17:00] LABS: CREATINE KINASE 28 IU/L (39-308)
[2017-10-03 17:01] LABS: CREATINE KINASE MB FRACTION 1.3 ng/mL (0.5-3.6)
[2017-10-03] MEDS ORDERED: IOHEXOL-300 100 ML BOTTLE ONE (17:24)
[2017-10-04] VITALS: BP 147/80
[2017-10-04 04:00] VITALS: BP 137/85
[2017-10-04] MEDS: SODIUM CHLORIDE 0.9% INJ 3ML FLUSH IVF SCH ×3 (05:44→21:41)
[2017-10-04] MEDS: INSULIN LISPRO 100 UNITS/ML SUBCUT SCH ×3 (06:50→20:57)
[2017-10-04] MEDS: BLOOD SUGAR DIAGNOSTIC STRIP TEST SCH ×4 (06:52→20:57)
[2017-10-04] MEDS: CEFTRIAXONE 1 G PREMIX 50 ML IV SCH (08:00)
[2017-10-04] MEDS ORDERED: PAPAVERINE HCL 30 MG/ML 2ML IV ONE (08:48)
[2017-10-04] MEDS ORDERED: BACITRACIN ZINC 15GM TUBE TOP ONE (08:48)
[2017-10-04] MEDS ORDERED: THROMBIN (BOVINE) 5000 UNITS/VIAL TOP ONE (08:49)
[2017-10-04] MEDS ORDERED: HEPARIN SODIUM 1,000 UNIT/1ML VIAL IV ONE (08:49)
[2017-10-04] MEDS ORDERED: BUPIVACAINE HCL/PF 0.5% (5MG/ML) 10ML ONE (08:49)
[2017-10-04] MEDS ORDERED: BACITRACIN 50,000 UNITS/VIAL ONE (08:50)
[2017-10-04] MEDS ORDERED: SODIUM CHLORIDE 0.9% 1,000 ML ONE (08:50)
[2017-10-04] MEDS ORDERED: GELATIN SPONGE,COMPRESSED SZ 100 ONE (08:50)
[2017-10-04] MEDS ORDERED: LIDOCAINE HCL/PF 1% 10 MG/ML 5ML VIAL ONE ×2 (08:50→09:40)
[2017-10-04] MEDS ORDERED: MORPHINE SULFATE 4 MG/ML CPJ (NOT FOR IM USE) IV PRN (09:15)
[2017-10-04] MEDS ORDERED: PROPOFOL 200MG/20ML VIAL IV ONE (09:40)
[2017-10-04] MEDS ORDERED: GLYCOPYRROLATE 0.2 MG/ML 2ML VIAL ONE (09:40)
[2017-10-04] MEDS ORDERED: FENTANYL CITRATE/PF 50MCG/ML 2ML VIAL ONE ×2 (09:40→10:07)
[2017-10-04] MEDS ORDERED: MIDAZOLAM HCL 2 MG/2 ML VIAL ONE (09:40)
[2017-10-04] MEDS ORDERED: SUCCINYLCHOLINE CHLORIDE 200MG/10ML VIAL IV ONE (09:40)
[2017-10-04] MEDS ORDERED: METOCLOPRAMIDE HCL 10MG/2ML VIAL ONE (09:41)
[2017-10-04] MEDS ORDERED: ONDANSETRON HCL 4MG/2ML VIAL ONE (09:41)
[2017-10-04] MEDS ORDERED: HEPARIN 1000 UNITS/ML 10ML ONE (10:07)
[2017-10-04] MEDS ORDERED: SODIUM CHLORIDE 0.9% 1,000 ML IV ONE (10:51)
[2017-10-04] MEDS ORDERED: ONDANSETRON HCL 4MG/2ML VIAL IV PRN (11:00)
[2017-10-04] MEDS ORDERED: MEPERIDINE HCL/PF 25MG/ML CPJ IV PRN (11:00)
[2017-10-04] MEDS ORDERED: HYDROMORPHONE HCL/PF 2MG/ML CPJ IV PRN (11:00)
[2017-10-04] MEDS ORDERED: ALBUTEROL 6.7GM HFA INHALER ORI PRN (12:45)
[2017-10-04] MEDS ORDERED: FOLIC ACID/VITAMIN B COMP W-C TABLET PO SCH (12:45)
[2017-10-04] MEDS ORDERED: CINACALCET HCL 90MG TABLET PO SCH (13:30)
[2017-10-04] MEDS: CARVEDILOL 3.125 MG TABLET PO SCH ×2 (15:01→20:50)
[2017-10-04 15:15] LABS: INR 1.1; PARTIAL THROMBOPLASTIN TIME 27.5 sec (23.4-31.0); PROTHROMBIN TIME 11.8 sec (9.4-11.6)
[2017-10-04 15:17] LABS: BASOPHILS % 0.3 % (0.0-2.0); EOSINOPHILS % 1.1 % (0.0-5.0); HEMATOCRIT. 39.6 % (42.0-52.0); HEMOGLOBIN. 13.2 g/dL (14.0-18.0); MEAN CORPUSCULAR HEMOGLOBIN 28.4 pg (28.0-32.0); MEAN CORPUSCULAR VOLUME 85.4 fL (80.0-94.0); MEAN PLATELET VOLUME 11.1 fl (7.4-10.4); MONOCYTES % 6.3 % (2.0-8.0); NEUTROPHILS % 82.3 % (40.0-76.0); PLATELET 100 x1000/uL (130-400); RED BLOOD CELL COUNT 4.63 mill/uL (4.7-6.1); RED CELL DISTRIBUTION WIDTH 15.8 % (11.6-14.6)
[2017-10-04 15:47] LABS: CHLORIDE 96 mEq/L (98-107)
[2017-10-04] MEDS ORDERED: CEPH-568 MT (15:57)
[2017-10-04] MEDS ORDERED: TRAM50TA94 MT (15:59)
[2017-10-04] MEDS ORDERED: FAMOTIDINE 20MG/2ML VIAL IV NR (18:45)
[2017-10-04] MEDS ORDERED: METOCLOPRAMIDE HCL 10MG/2ML VIAL IV NR (18:45)
[2017-10-04] MEDS ORDERED: ONDANSETRON HCL 4MG/2ML VIAL IV NR (18:45)
[2017-10-04 20:00] VITALS: BP 166/58
[2017-10-04] MEDS: HYDROCODONE/ACETAMINOPHEN 10/325MG TABLET PO PRN (21:00)
[2017-10-04] MEDS ORDERED: ATORVASTATIN CALCIUM 40MG TABLET PO SCH (21:00)
[2017-10-04 23:17] VITALS: BP 133/78
== END 2017-10-05 00:07 | disposition home health service (06) | DRG 252 ==
LOC: ER 20:20 → 8WST 10-02 02:48 → EDBEDREQTM 10-02 02:50 → EDBEDREQ 10-02 02:50 → EDBEDREQSVC 10-02 04:12 → EDBEDREQTM 10-02 04:12 → EDBEDREQSVC 10-02 08:28 → ENRESERV 10-02 09:00
PROVIDERS: ADMIT Family Medicine; ATTEND Family Medicine
PROC: 5A1D70Z Performance of Urinary Filtration, Intermittent, Less than 6 Hours Per Day (ICD-10-PCS; 2017-10-03)
PROC: 031 Upper Arteries, Bypass (ICD-10-PCS; principal; 2017-10-04 09:00)
PROC: 5A1D70Z Performance of Urinary Filtration, Intermittent, Less than 6 Hours Per Day (ICD-10-PCS; 2017-10-05)
DX: T82.898A Other specified complication of vascular prosthetic devices, implants and grafts, initial encounter (principal); N18.6 End stage renal disease; E11.52 Type 2 diabetes mellitus with diabetic peripheral angiopathy with gangrene; I96 Gangrene, not elsewhere classified; N25.81 Secondary hyperparathyroidism of renal origin; I12.0 Hypertensive chronic kidney disease with stage 5 chronic kidney disease or end stage renal disease; D63.1 Anemia in chronic kidney disease; I25.10 Atherosclerotic heart disease of native coronary artery without angina pectoris; I48.0 Paroxysmal atrial fibrillation; Y83.2 Surgical operation with anastomosis, bypass or graft as the cause of abnormal reaction of the patient, or of later complication, without mention of misadventure at the time of the procedure; L03.012 Cellulitis of left finger; D69.6 Thrombocytopenia, unspecified; E11.22 Type 2 diabetes mellitus with diabetic chronic kidney disease; E11.40 Type 2 diabetes mellitus with diabetic neuropathy, unspecified; Z99.2 Dependence on renal dialysis; Z79.02 Long term (current) use of antithrombotics/antiplatelets; Y92.89 Other specified places as the place of occurrence of the external cause; Z88.1 Allergy status to other antibiotic agents; Z90.49 Acquired absence of other specified parts of digestive tract; Z79.899 Other long term (current) drug therapy; I25.2 Old myocardial infarction; Z89.022 Acquired absence of left finger(s); Z98.49 Cataract extraction status, unspecified eye
CPT/HCPCS: 36415; 71045; 73140; 73206; 80053; 80061; 82550; 82553; 82962; 83036; 83605; 83880; 84484; 85025; 85610; 85730; 87040; 90471; 90715; 93005; 93922; 96361; 96365; 96375; 99285; J0330; J0696; J1200; J1644; J1815; J2250; J2405; J2440; J2543; J2704; J2765; J3010; J3370; J3490; J7030; J7040; Q9967

== ENCOUNTER 2017-10-09 06:44 | Emergency (ER) | payer MEDICARE, MEDICAID ==
[~2017-10-09] VITALS: Ht 180.3 cm; Wt 98.3 kg
[~2017-10-09 06:44] MED LIST changes: +ALPR-340 MT; +CARV3.1242 MT; +CEPH-568 MT; +TRAM50TA94 MT
[2017-10-09 08:35] LABS: BASOPHILS % 1.2 % (0.0-2.0); EOSINOPHILS % 2.1 % (0.0-5.0); HEMATOCRIT. 37.6 % (42.0-52.0); HEMOGLOBIN. 12.6 g/dL (14.0-18.0); LYMPHOCYTES % 15.4 % (20.0-50.0); MEAN CORPUSCULAR HEMOGLOBIN 28.6 pg (28.0-32.0); MEAN CORPUSCULAR VOLUME 85.1 fL (80.0-94.0); MEAN PLATELET VOLUME 11.2 fl (7.4-10.4); NEUTROPHILS % 74.3 % (40.0-76.0); PLATELET 100 x1000/uL (130-400); RED BLOOD CELL COUNT 4.42 mill/uL (4.7-6.1); RED CELL DISTRIBUTION WIDTH 15.9 % (11.6-14.6)
[2017-10-09 08:43] LABS: INR 1.1; PARTIAL THROMBOPLASTIN TIME 28.6 sec (23.4-31.0); PROTHROMBIN TIME 11.7 sec (9.4-11.6)
[2017-10-09 09:09] LABS: CHLORIDE 93 mEq/L (98-107)
[2017-10-09 13:38] VITALS: BP 157/93
== END 2017-10-09 13:59 | disposition home or self-care (01) ==
LOC: ER 08:00
DX: I87.1 Compression of vein (principal); I10 Essential (primary) hypertension; E11.9 Type 2 diabetes mellitus without complications; Z90.49 Acquired absence of other specified parts of digestive tract; Z90.89 Acquired absence of other organs; Z88.1 Allergy status to other antibiotic agents; Z79.4 Long term (current) use of insulin; Z79.82 Long term (current) use of aspirin
CPT/HCPCS: 36415; 80053; 85025; 85610; 85730; 93971; 99285

== ENCOUNTER 2017-11-02 13:05 | Emergency (ER) | payer MEDICAID, MEDICARE ==
[~2017-11-02] VITALS: Ht 172.7 cm; Wt 74.0 kg
[2017-11-02 14:44] LABS: BASOPHILS % 0.4 % (0.0-2.0); HEMATOCRIT. 40.9 % (42.0-52.0); HEMOGLOBIN. 13.8 g/dL (14.0-18.0); LYMPHOCYTES % 14.6 % (20.0-50.0); MEAN CORPUSCULAR HEMOGLOBIN 28.9 pg (28.0-32.0); MEAN CORPUSCULAR VOLUME 85.8 fL (80.0-94.0); MONOCYTES % 11.8 % (2.0-8.0); NEUTROPHILS % 70.2 % (40.0-76.0); PLATELET 69 x1000/uL (130-400); RED BLOOD CELL COUNT 4.76 mill/uL (4.7-6.1)
[2017-11-02 14:49] LABS: CHLORIDE 99 mEq/L (98-107)
[2017-11-02 14:50] LABS: PROTHROMBIN TIME 10.5 sec (9.1-11.1)
[2017-11-02 15:30] VITALS: BP 151/79
== END 2017-11-02 15:40 | disposition home or self-care (01) ==
LOC: ER 13:05
DX: I47.1 Supraventricular tachycardia (principal); I25.2 Old myocardial infarction; I12.0 Hypertensive chronic kidney disease with stage 5 chronic kidney disease or end stage renal disease; N18.6 End stage renal disease; I48.91 Unspecified atrial fibrillation; Z99.2 Dependence on renal dialysis; Z88.1 Allergy status to other antibiotic agents; Z79.899 Other long term (current) drug therapy
CPT/HCPCS: 36415; 71045; 80053; 83880; 84484; 85025; 85610; 93005; 99285

== ENCOUNTER 2017-12-07 14:42 | Emergency (ER) | payer MEDICARE, MEDICAID ==
[~2017-12-07] VITALS: Ht 180.3 cm; Wt 92.0 kg
[~2017-12-07 14:42] MED LIST changes: -CEPH-568 MT; -CINA90TA PO; -FERR210T PO; -FOLI1TAB87 PO; -NATE120T PO; -TIOT18CA3 INH; -TRAM50TA94 MT
[2017-12-07] MEDS ORDERED: HYDROCODONE/ACETAMINOPHEN 5/325MG TABLET PO ONE (19:45)
[2017-12-07] MEDS ORDERED: MORPHINE SULFATE 10 MG/ML CPJ IM ONE (21:15)
[2017-12-07] MEDS ORDERED: ONDANSETRON 4MG ODT PO ONE (21:15)
[2017-12-07 21:28] VITALS: BP 168/82
== END 2017-12-07 21:34 | disposition home or self-care (01) ==
LOC: ER 14:42
DX: N47.6 Balanoposthitis (principal); N48.89 Other specified disorders of penis; I25.2 Old myocardial infarction; E11.22 Type 2 diabetes mellitus with diabetic chronic kidney disease; N18.6 End stage renal disease; I48.91 Unspecified atrial fibrillation; R03.0 Elevated blood-pressure reading, without diagnosis of hypertension; Z99.2 Dependence on renal dialysis; Z79.01 Long term (current) use of anticoagulants; Z88.3 Allergy status to other anti-infective agents; Z90.49 Acquired absence of other specified parts of digestive tract; Z79.4 Long term (current) use of insulin
CPT/HCPCS: 96372; 99283; J2270; Q0162

== ENCOUNTER 2018-09-18 15:03 | Emergency (ER) | payer MEDICARE, MEDICAID ==
[~2018-09-18] VITALS: Ht 180.3 cm; Wt 91.0 kg
[~2018-09-18 15:03] MED LIST changes: -ASPI-1159 PO; +ASPI-1393 PO
[2018-09-18] MEDS ORDERED: CLINDAMYCIN 900 MG in DEXTROSE 5% WATER 50 ML IV ONE (16:15)
[2018-09-18] MEDS ORDERED: PIPERACILLIN/TAZOBACTAM 3.375GM/50ML PREMIX IV ONE (16:15)
[2018-09-18] MEDS ORDERED: PIPERACILLIN/TAZ 3.375G PREMIX 50 ML IV NR (16:30)
[2018-09-18 16:39] LABS: BASOPHILS % 0.4 % (0.0-2.0); EOSINOPHILS % 1.3 % (0.0-5.0); HEMATOCRIT. 39.2 % (42.0-52.0); HEMOGLOBIN. 13.1 g/dL (14.0-18.0); LYMPHOCYTES % 8.8 % (20.0-50.0); MEAN CORPUSCULAR HEMOGLOBIN 27.8 pg (28.0-32.0); MEAN PLATELET VOLUME 9.7 fl (7.4-10.4); MONOCYTES % 5.5 % (2.0-8.0); PLATELET 130 x1000/uL (130-400); RED BLOOD CELL COUNT 4.72 mill/uL (4.7-6.1)
[2018-09-18 16:45] LABS: CHLORIDE 97 mEq/L (98-107)
[2018-09-18 16:46] LABS: INR 1.1; PROTHROMBIN TIME 11.4 sec (9.6-11.0)
[2018-09-18] MEDS ORDERED: MORPHINE SULFATE 4 MG/ML CPJ (NOT FOR IM USE) IV ONE ×2 (17:00→22:00)
[2018-09-19] MEDS ORDERED: CLINDAMYCIN 900 MG in DEXTROSE 5% WATER 50 ML IV ONE ×3 (02:15→21:45)
[2018-09-19] MEDS ORDERED: PIPERACILLIN/TAZ 3.375G PREMIX 50 ML IV ONE ×2 (02:15→13:51)
[2018-09-19] MEDS ORDERED: ONDANSETRON HCL 4MG/2ML INJ IV ONE ×2 (04:15→18:00)
[2018-09-19] MEDS ORDERED: MORPHINE SULFATE 4 MG/ML CPJ (NOT FOR IM USE) IV ONE ×2 (04:15→18:00)
[2018-09-19] MEDS ORDERED: CLINDAMYCIN 900 MG in SODIUM CHLORIDE 0.9% 50 ML IV ONE (14:00)
[2018-09-19] MEDS ORDERED: KETOROLAC 30MG/ML VIAL IV ONE (15:30)
[2018-09-19 16:34] LABS: HEMATOCRIT. 37.8 % (42.0-52.0); HEMOGLOBIN. 12.4 g/dL (14.0-18.0); MEAN CORPUSCULAR HEMOGLOBIN 27.6 pg (28.0-32.0); MEAN CORPUSCULAR VOLUME 83.8 fL (80.0-94.0); PLATELET 127 x1000/uL (130-400); RED BLOOD CELL COUNT 4.51 mill/uL (4.7-6.1); RED CELL DISTRIBUTION WIDTH 16.7 % (11.6-14.6)
[2018-09-19 17:27] LABS: PLATELET ESTIMATE DECREASED
[2018-09-19 18:46] LABS: CHLORIDE 93 mEq/L (98-107)
[2018-09-19] MEDS ORDERED: PIPERACILLIN/TAZOBACTAM 3.375GM/50ML PREMIX IV ONE (21:45)
[2018-09-20 03:00] VITALS: BP 109/66
== END 2018-09-20 04:25 | disposition short-term general hospital (02) ==
LOC: ER 16:14
DX: I96 Gangrene, not elsewhere classified (principal); M86.8X4 Other osteomyelitis, hand; I25.2 Old myocardial infarction; E11.22 Type 2 diabetes mellitus with diabetic chronic kidney disease; N18.6 End stage renal disease; I47.1 Supraventricular tachycardia; Z99.2 Dependence on renal dialysis; Z90.49 Acquired absence of other specified parts of digestive tract; Z98.49 Cataract extraction status, unspecified eye; Z79.4 Long term (current) use of insulin
CPT/HCPCS: 36415; 73130; 73220; 80053; 83605; 85025; 85610; 85651; 86140; 87040; 96365; 96366; 96367; 96368; 96375; 96376; 99285; J1885; J2270; J2405; J2543; J3490; J7060

== ENCOUNTER 2018-10-03 20:42 | Inpatient (IN) | payer MEDICARE, MEDICAID ==
[~2018-10-03] VITALS: Ht 180.3 cm; Wt 93.9 kg
[2018-10-03 21:56] LABS: BASOPHILS % 0.7 % (0.0-2.0); EOSINOPHILS % 2.2 % (0.0-5.0); HEMOGLOBIN. 11.4 g/dL (14.0-18.0); LYMPHOCYTES % 10.8 % (20.0-50.0); MEAN CORPUSCULAR HEMOGLOBIN 27.7 pg (28.0-32.0); MEAN CORPUSCULAR VOLUME 85.3 fL (80.0-94.0); MEAN PLATELET VOLUME 10.6 fl (7.4-10.4); NEUTROPHILS % 78.3 % (40.0-76.0); PLATELET 92 x1000/uL (130-400); RED CELL DISTRIBUTION WIDTH 18.7 % (11.6-14.6)
[2018-10-03 22:01] LABS: CHLORIDE 98 mEq/L (98-107)
[2018-10-03] MEDS ORDERED: MORPHINE SULFATE 4 MG/ML CPJ (NOT FOR IM USE) IV ONE (22:45)
[2018-10-03] MEDS ORDERED: HYDROCODONE/ACETAMINOPHEN 5/325MG TABLET PO PRN (23:30)
[2018-10-03] MEDS ORDERED: CLONIDINE 0.1MG TABLET PO PRN (23:30)
[2018-10-03] MEDS ORDERED: MAGNESIUM/ALUMINUM HYDROXIDE/SIMETHICONE 30ML UDC PO PRN (23:30)
[2018-10-03] MEDS ORDERED: ACETAMINOPHEN 325MG TABLET PO PRN (23:30)
[2018-10-03] MEDS ORDERED: ONDANSETRON HCL 4MG/2ML INJ IV PRN (23:30)
[2018-10-03] MEDS ORDERED: DIPHENHYDRAMINE 50MG/ML VIAL IV PRN (23:30)
[2018-10-03] MEDS ORDERED: GUAIFENESIN 200MG/10ML SUGAR FREE UDC PO PRN (23:30)
[2018-10-03] MEDS ORDERED: NA PHOS,M-B/NA PHOS,DI-BA ENEMA 118ML PR PRN (23:30)
[2018-10-03] MEDS ORDERED: NITROGLYCERIN 0.4MG TABLET SL SL PRN (23:30)
[2018-10-03] MEDS ORDERED: DOCUSATE SODIUM 100MG CAPSULE PO PRN (23:30)
[2018-10-04] MEDS ORDERED: DEXTROSE 50% WATER 50ML SYRINGE IV PRN (04:00)
[2018-10-04] MEDS: HYDROMORPHONE HCL/PF 2MG/ML CPJ IV PRN (04:09)
[2018-10-04 04:15] VITALS: BP 171/91
[2018-10-04] MEDS ORDERED: FERR210T MT (05:12)
[2018-10-04] MEDS ORDERED: DOCU-150 PO (05:12)
[2018-10-04] MEDS ORDERED: INSU100I28 SQ (05:12)
[2018-10-04] MEDS ORDERED: INSASP SUBCUT (05:12)
[2018-10-04] MEDS ORDERED: GABA-531 PO (05:12)
[2018-10-04] MEDS: BLOOD SUGAR DIAGNOSTIC STRIP TEST SCH ×4 (06:08→20:20)
[2018-10-04] MEDS: INSULIN LISPRO 100 UNITS/ML SUBCUT SCH ×4 (06:13→20:19)
[2018-10-04] MEDS: CLOPIDOGREL 75MG TABLET PO SCH (08:27)
[2018-10-04 08:43] VITALS: BP 147/81
[2018-10-04] MEDS: CARVEDILOL 3.125 MG TABLET PO SCH ×2 (09:00→20:20)
[2018-10-04 12:00] VITALS: BP 137/86
[2018-10-04 12:35] LABS: BASOPHILS % 0.4 % (0.0-2.0); EOSINOPHILS % 2.2 % (0.0-5.0); HEMATOCRIT. 36.1 % (42.0-52.0); HEMOGLOBIN. 11.7 g/dL (14.0-18.0); LYMPHOCYTES % 12.2 % (20.0-50.0); MEAN CORPUSCULAR HEMOGLOBIN 27.8 pg (28.0-32.0); MEAN CORPUSCULAR VOLUME 85.6 fL (80.0-94.0); MONOCYTES % 6.9 % (2.0-8.0); NEUTROPHILS % 78.3 % (40.0-76.0); PLATELET 99 x1000/uL (130-400); RED BLOOD CELL COUNT 4.22 mill/uL (4.7-6.1); RED CELL DISTRIBUTION WIDTH 18.9 % (11.6-14.6)
[2018-10-04 12:41] LABS: CHLORIDE 99 mEq/L (98-107)
[2018-10-04 12:49] LABS: CREATINE KINASE 27 IU/L (39-308); LDL CHOLESTEROL 69 mg/dL (5-100)
[2018-10-04 12:50] LABS: HDL CHOLESTEROL 28 mg/dL (40-59)
[2018-10-04 12:52] LABS: CREATINE KINASE MB FRACTION 1.3 ng/mL (0.5-3.6)
[2018-10-04 16:02] VITALS: BP 105/51
[2018-10-04 16:18] LABS: CREATINE KINASE MB FRACTION 1.4 ng/mL (0.5-3.6)
[2018-10-04] MEDS: ASPIRIN 81MG EC TABLET PO SCH ×2 (16:53→17:00)
[2018-10-04] MEDS: LOSARTAN POTASSIUM 25 MG TABLET PO SCH ×2 (16:53→20:20)
[2018-10-04 20:00] VITALS: BP 127/76
[2018-10-04] MEDS: ATORVASTATIN CALCIUM 40MG TABLET PO SCH (20:19)
[2018-10-05] VITALS (10 sets, daily range): BP systolic 122–156; BP diastolic 48–98
[2018-10-05] MEDS: MORPHINE SULFATE 2 MG/ML CPJ (NOT FOR IM USE) IV PRN ×2 (02:52→23:34)
[2018-10-05 06:05] LABS: BASOPHILS % 0.4 % (0.0-2.0); EOSINOPHILS % 3.2 % (0.0-5.0); HEMATOCRIT. 36.7 % (42.0-52.0); LYMPHOCYTES % 13.5 % (20.0-50.0); MEAN CORPUSCULAR HEMOGLOBIN 27.8 pg (28.0-32.0); MEAN CORPUSCULAR VOLUME 85.4 fL (80.0-94.0); MEAN PLATELET VOLUME 11.1 fl (7.4-10.4); NEUTROPHILS % 72.9 % (40.0-76.0); PLATELET 97 x1000/uL (130-400); RED CELL DISTRIBUTION WIDTH 18.7 % (11.6-14.6)
[2018-10-05] MEDS: BLOOD SUGAR DIAGNOSTIC STRIP TEST SCH ×3 (06:23→20:21)
[2018-10-05] MEDS: INSULIN LISPRO 100 UNITS/ML SUBCUT SCH ×4 (06:25→20:57)
[2018-10-05 06:46] LABS: CHLORIDE 99 mEq/L (98-107)
[2018-10-05 06:58] LABS: CREATINE KINASE MB FRACTION 1.2 ng/mL (0.5-3.6); LDL CHOLESTEROL 73 mg/dL (5-100)
[2018-10-05 06:59] LABS: CREATINE KINASE 17 IU/L (39-308); HDL CHOLESTEROL 27 mg/dL (40-59)
[2018-10-05] MEDS: CLOPIDOGREL 75MG TABLET PO SCH (08:46)
[2018-10-05] MEDS: LOSARTAN POTASSIUM 25 MG TABLET PO SCH ×2 (08:49→20:56)
[2018-10-05] MEDS: ASPIRIN 81MG EC TABLET PO SCH ×2 (08:49→18:40)
[2018-10-05] MEDS: CARVEDILOL 3.125 MG TABLET PO SCH ×2 (08:49→20:56)
[2018-10-05] MEDS ORDERED: HEPARIN SODIUM 1,000 UNIT/1ML VIAL IV ONE (09:19)
[2018-10-05] MEDS ORDERED: NITROGLYCERIN 50MCG/ML 10ML VIAL (CATH LAB) IV ONE (09:19)
[2018-10-05] MEDS: HYDROMORPHONE HCL/PF 2MG/ML CPJ IV PRN (10:33)
[2018-10-05] MEDS ORDERED: MIDAZOLAM HCL 2 MG/2 ML VIAL ONE (14:45)
[2018-10-05] MEDS ORDERED: ASPIRIN/SOD BICARB/CITRIC ACID 324MG TAB EFF ONE (14:46)
[2018-10-05] MEDS ORDERED: LIDOCAINE HCL 1% 20ML VIAL (Pyxis) INJ ONE (14:46)
[2018-10-05] MEDS ORDERED: IODIXANOL 320MG/ML 100 ML BOTTLE IV ONE (14:46)
[2018-10-05] MEDS ORDERED: FENTANYL CITRATE/PF 50MCG/ML 2ML VIAL ONE (14:47)
[2018-10-05] MEDS ORDERED: IOHEXOL-300 100 ML BOTTLE ONE ×2 (15:33→15:54)
[2018-10-05] MEDS ORDERED: IODIXANOL 320MG/ML 200ML BOTTLE ONE (15:54)
[2018-10-05] MEDS ORDERED: CLOPIDOGREL 75MG TABLET ONE (16:06)
[2018-10-05] MEDS ORDERED: CLOPIDOGREL 75MG TABLET PO ONE (16:15)
[2018-10-05] MEDS ORDERED: ACETAMINOPHEN 325MG TABLET PO PRN (16:15)
[2018-10-05] MEDS ORDERED: ONDANSETRON HCL 4MG/2ML INJ IV PRN (16:15)
[2018-10-05] MEDS ORDERED: ATROPINE SULFATE 1MG/10ML SYR IV PRN (16:15)
[2018-10-05] MEDS ORDERED: MORPHINE SULFATE 2 MG/ML CPJ (NOT FOR IM USE) IV PRN (16:15)
[2018-10-05] MEDS: ATORVASTATIN CALCIUM 40MG TABLET PO SCH (20:55)
[2018-10-06] VITALS (8 sets, daily range): BP systolic 109–152; BP diastolic 70–82
[2018-10-06] MEDS: BLOOD SUGAR DIAGNOSTIC STRIP TEST SCH ×2 (06:21→12:13)
[2018-10-06 06:23] LABS: BASOPHILS % 0.4 % (0.0-2.0); EOSINOPHILS % 2.4 % (0.0-5.0); HEMATOCRIT. 37.2 % (42.0-52.0); HEMOGLOBIN. 12.1 g/dL (14.0-18.0); LYMPHOCYTES % 12.3 % (20.0-50.0); MEAN CORPUSCULAR HEMOGLOBIN 27.5 pg (28.0-32.0); MEAN CORPUSCULAR VOLUME 84.9 fL (80.0-94.0); MEAN PLATELET VOLUME 10.8 fl (7.4-10.4); MONOCYTES % 9.3 % (2.0-8.0); NEUTROPHILS % 75.6 % (40.0-76.0); PLATELET 98 x1000/uL (130-400); RED BLOOD CELL COUNT 4.39 mill/uL (4.7-6.1)
[2018-10-06] MEDS: MORPHINE SULFATE 2 MG/ML CPJ (NOT FOR IM USE) IV PRN (06:34)
[2018-10-06] MEDS: INSULIN LISPRO 100 UNITS/ML SUBCUT SCH ×2 (07:20→12:44)
[2018-10-06] MEDS: CARVEDILOL 3.125 MG TABLET PO SCH (08:23)
[2018-10-06] MEDS: ASPIRIN 81MG EC TABLET PO SCH ×2 (08:24→12:43)
[2018-10-06] MEDS: CLOPIDOGREL 75MG TABLET PO SCH ×2 (08:24→12:43)
[2018-10-06] MEDS: LOSARTAN POTASSIUM 25 MG TABLET PO SCH (08:24)
== END 2018-10-06 13:40 | disposition home or self-care (01) | DRG 246 ==
LOC: ER 21:00 → EDBEDREQ 21:25 → EDBEDREQTM 22:48 → EDBEDREQ 22:48 → ENRESERV 10-04 01:48 → 8WST 10-04 03:26 → 3WST 10-05 16:37
PROVIDERS: ADMIT Hospitalist; ATTEND Hospitalist
PROC: 5A1D70Z Performance of Urinary Filtration, Intermittent, Less than 6 Hours Per Day (ICD-10-PCS; 2018-10-04)
PROC: 027034Z Dilation of Coronary Artery, One Artery with Drug-eluting Intraluminal Device, Percutaneous Approach (ICD-10-PCS; principal; 2018-10-05)
PROC: B2111ZZ Fluoroscopy of Multiple Coronary Arteries using Low Osmolar Contrast (ICD-10-PCS; 2018-10-05)
PROC: 4A023N7 Measurement of Cardiac Sampling and Pressure, Left Heart, Percutaneous Approach (ICD-10-PCS; 2018-10-05)
PROC: 5A1D70Z Performance of Urinary Filtration, Intermittent, Less than 6 Hours Per Day (ICD-10-PCS; 2018-10-05)
DX: I13.2 Hypertensive heart and chronic kidney disease with heart failure and with stage 5 chronic kidney disease, or end stage renal disease (principal); N18.6 End stage renal disease; I50.33 Acute on chronic diastolic (congestive) heart failure; N25.81 Secondary hyperparathyroidism of renal origin; I47.1 Supraventricular tachycardia; D63.1 Anemia in chronic kidney disease; E11.22 Type 2 diabetes mellitus with diabetic chronic kidney disease; E11.40 Type 2 diabetes mellitus with diabetic neuropathy, unspecified; E78.00 Pure hypercholesterolemia, unspecified; E78.1 Pure hyperglyceridemia; E78.5 Hyperlipidemia, unspecified; F41.9 Anxiety disorder, unspecified; I25.10 Atherosclerotic heart disease of native coronary artery without angina pectoris; D69.6 Thrombocytopenia, unspecified; I48.0 Paroxysmal atrial fibrillation; I25.2 Old myocardial infarction; Z89.022 Acquired absence of left finger(s); Z95.5 Presence of coronary angioplasty implant and graft; Z99.2 Dependence on renal dialysis; Z83.3 Family history of diabetes mellitus; Z79.4 Long term (current) use of insulin; Z88.1 Allergy status to other antibiotic agents; Z79.82 Long term (current) use of aspirin; Z79.899 Other long term (current) drug therapy
CPT/HCPCS: 36415; 71045; 80048; 80061; 82550; 82553; 82962; 83735; 83880; 84484; 85347; 85379; 92928; 93005; 93306; 93458; 96374; 97162; 97166; 99285; C1769; C1874; C1887; C1893; J1170; J1200; J1644; J1815; J2250; J2270; J3010; J3490; J7040; Q9967

== ENCOUNTER 2019-03-12 16:28 | Inpatient (IN) | payer MEDICARE, MEDICAID ==
[~2019-03-12] VITALS: Ht 180.3 cm; Wt 90.7 kg
[~2019-03-12 16:28] MED LIST changes: -ALBU4TAB6 INH; -ALPR-340 MT; +DOCU-150 PO; +FERR210T MT; +GABA-531 PO; +INSASP SUBCUT; -INSU100C3 SQ; +INSU100I28 SQ; -LEVVL SQ
[2019-03-12] MEDS ORDERED: ASPIRIN 81MG TABLET PO ONE (17:15)
[2019-03-12 17:53] LABS: BASOPHILS % 0.7 % (0.0-2.0); EOSINOPHILS % 1.3 % (0.0-5.0); HEMATOCRIT. 42.9 % (42.0-52.0); HEMOGLOBIN. 14.3 g/dL (14.0-18.0); LYMPHOCYTES % 12.7 % (20.0-50.0); MEAN CORPUSCULAR HEMOGLOBIN 28.7 pg (28.0-32.0); MEAN CORPUSCULAR VOLUME 86.5 fL (80.0-94.0); MEAN PLATELET VOLUME 11.6 fl (7.4-10.4); MONOCYTES % 7.4 % (2.0-8.0); NEUTROPHILS % 77.9 % (40.0-76.0); PLATELET 111 x1000/uL (130-400); RED BLOOD CELL COUNT 4.96 mill/uL (4.7-6.1); RED CELL DISTRIBUTION WIDTH 17.2 % (11.6-14.6)
[2019-03-12 17:59] LABS: CHLORIDE 95 mEq/L (98-107)
[2019-03-12 18:11] LABS: PARTIAL THROMBOPLASTIN TIME 29.1 sec (23.4-31.0); PROTHROMBIN TIME 10.8 sec (9.6-11.0)
[2019-03-12] MEDS ORDERED: DEXTROSE 50% WATER 50ML SYRINGE IV PRN (19:00)
[2019-03-12] MEDS ORDERED: ONDANSETRON HCL 4MG/2ML INJ IV PRN (19:00)
[2019-03-12] MEDS ORDERED: NITROGLYCERIN 0.4MG TABLET SL SL ONE (19:00)
[2019-03-12] MEDS ORDERED: MORPHINE SULFATE 2 MG/ML CPJ (NOT FOR IM USE) IV PRN (19:00)
[2019-03-12] MEDS ORDERED: ACETAMINOPHEN 325MG TABLET PO PRN (19:00)
[2019-03-12] MEDS ORDERED: NITROGLYCERIN 0.4MG TABLET SL SL PRN (19:30)
[2019-03-12] MEDS: BLOOD SUGAR DIAGNOSTIC STRIP TEST SCH (22:14)
[2019-03-12] MEDS: ATORVASTATIN CALCIUM 10MG TABLET PO SCH (22:14)
[2019-03-12] MEDS: INSULIN LISPRO 100 UNITS/ML SUBCUT SCH (22:18)
[2019-03-12 23:00] VITALS: BP 159/90
[2019-03-13] VITALS (7 sets, daily range): BP systolic 149–163; BP diastolic 62–94
[2019-03-13] MEDS ORDERED: DIPHENHYDRAMINE 50MG CAPSULE PO PRN (01:00)
[2019-03-13] MEDS: BLOOD SUGAR DIAGNOSTIC STRIP TEST SCH ×4 (07:20→20:50)
[2019-03-13] MEDS: INSULIN LISPRO 100 UNITS/ML SUBCUT SCH ×4 (07:50→20:59)
[2019-03-13] MEDS: HEPARIN 5000 UNITS/ML VIAL SUBCUT SCH ×2 (09:00→20:49)
[2019-03-13 09:39] LABS: CHLORIDE 99 mEq/L (98-107)
[2019-03-13 10:02] LABS: BASOPHILS % 0.8 % (0.0-2.0); EOSINOPHILS % 1.9 % (0.0-5.0); HEMATOCRIT. 41.8 % (42.0-52.0); HEMOGLOBIN. 13.8 g/dL (14.0-18.0); LYMPHOCYTES % 15.6 % (20.0-50.0); MEAN CORPUSCULAR HEMOGLOBIN 28.8 pg (28.0-32.0); MEAN CORPUSCULAR VOLUME 87.1 fL (80.0-94.0); MEAN PLATELET VOLUME 11.3 fl (7.4-10.4); MONOCYTES % 11.4 % (2.0-8.0); NEUTROPHILS % 70.3 % (40.0-76.0); PLATELET 103 x1000/uL (130-400); RED CELL DISTRIBUTION WIDTH 17.5 % (11.6-14.6)
[2019-03-13] MEDS ORDERED: IODIXANOL 320MG/ML 100 ML BOTTLE IV ONE (12:13)
[2019-03-13] MEDS ORDERED: LIDOCAINE HCL 1% 20ML VIAL (Pyxis) INJ ONE (12:13)
[2019-03-13] MEDS ORDERED: ASPIRIN/SOD BICARB/CITRIC ACID 324MG TAB EFF ONE (12:14)
[2019-03-13] MEDS ORDERED: MIDAZOLAM HCL 2 MG/2 ML VIAL ONE (12:59)
[2019-03-13] MEDS ORDERED: FENTANYL CITRATE/PF 50MCG/ML 2ML VIAL ONE (12:59)
[2019-03-13] MEDS ORDERED: ATROPINE SULFATE 1MG/10ML SYR IV PRN (13:30)
[2019-03-13] MEDS ORDERED: ONDANSETRON HCL 4MG/2ML INJ IV PRN (13:30)
[2019-03-13] MEDS ORDERED: ACETAMINOPHEN 325MG TABLET PO PRN (13:30)
[2019-03-13] MEDS ORDERED: MORPHINE SULFATE 2 MG/ML CPJ (NOT FOR IM USE) IV PRN (13:30)
[2019-03-13] MEDS: CLOPIDOGREL 75MG TABLET PO SCH (19:04)
[2019-03-13] MEDS: ATORVASTATIN CALCIUM 10MG TABLET PO SCH (20:49)
[2019-03-14] VITALS: BP 168/94
[2019-03-14 04:00] VITALS: BP 157/86
[2019-03-14 06:10] LABS: BASOPHILS % 0.4 % (0.0-2.0); EOSINOPHILS % 1.5 % (0.0-5.0); HEMOGLOBIN. 14.4 g/dL (14.0-18.0); LYMPHOCYTES % 16.7 % (20.0-50.0); MEAN CORPUSCULAR HEMOGLOBIN 28.9 pg (28.0-32.0); MEAN CORPUSCULAR VOLUME 86.7 fL (80.0-94.0); MEAN PLATELET VOLUME 11.3 fl (7.4-10.4); MONOCYTES % 8.3 % (2.0-8.0); NEUTROPHILS % 73.1 % (40.0-76.0); PLATELET 99 x1000/uL (130-400); RED BLOOD CELL COUNT 4.96 mill/uL (4.7-6.1); RED CELL DISTRIBUTION WIDTH 17.3 % (11.6-14.6)
[2019-03-14 06:14] LABS: CHLORIDE 96 mEq/L (98-107)
[2019-03-14 06:24] LABS: PHOSPHORUS 7.9 mg/dL (2.5-4.9)
[2019-03-14] MEDS: BLOOD SUGAR DIAGNOSTIC STRIP TEST SCH ×2 (07:09→12:20)
[2019-03-14] MEDS: INSULIN LISPRO 100 UNITS/ML SUBCUT SCH ×2 (08:07→13:20)
[2019-03-14 08:14] VITALS: BP 183/80
[2019-03-14] MEDS: CLOPIDOGREL 75MG TABLET PO SCH (08:41)
[2019-03-14] MEDS ORDERED: FOLIC ACID/VITAMIN B COMP W-C TABLET PO SCH (09:00)
[2019-03-14] MEDS ORDERED: SEVELAMER CARBONATE 800 MG TABLET PO SCH (12:50)
[2019-03-14 12:56] VITALS: BP 130/85
[2019-03-14] MEDS ORDERED: DOCUSATE SODIUM 100MG CAPSULE PO SCH (13:00)
[2019-03-14] MEDS ORDERED: CARVEDILOL 3.125 MG TABLET PO SCH (13:00)
[2019-03-14] MEDS ORDERED: GABAPENTIN 300MG CAPSULE PO SCH (13:00)
[2019-03-14 13:33] VITALS: BP 130/85
[2019-03-14] MEDS ORDERED: ASPIRIN 81MG EC TABLET PO SCH (21:00)
[2019-03-14] MEDS ORDERED: INSULIN GLARGINE UD 100 UNITS/ML SYR SUBCUT SCH (22:00)
== END 2019-03-14 16:02 | disposition home or self-care (01) | DRG 286 ==
LOC: ER 17:51 → EDBEDREQ 18:46 → 6WST 18:47 → ENRESERV 19:54
PROVIDERS: ADMIT Family Medicine Adult Medicine; ATTEND Family Medicine Adult Medicine
PROC: 4A023N7 Measurement of Cardiac Sampling and Pressure, Left Heart, Percutaneous Approach (ICD-10-PCS; principal; 2019-03-13)
PROC: B2111ZZ Fluoroscopy of Multiple Coronary Arteries using Low Osmolar Contrast (ICD-10-PCS; 2019-03-13)
PROC: B2151ZZ Fluoroscopy of Left Heart using Low Osmolar Contrast (ICD-10-PCS; 2019-03-13)
PROC: 5A1D70Z Performance of Urinary Filtration, Intermittent, Less than 6 Hours Per Day (ICD-10-PCS; 2019-03-13)
DX: R07.9 Chest pain, unspecified (principal); N18.6 End stage renal disease; I13.2 Hypertensive heart and chronic kidney disease with heart failure and with stage 5 chronic kidney disease, or end stage renal disease; N25.81 Secondary hyperparathyroidism of renal origin; I47.1 Supraventricular tachycardia; T82.855A Stenosis of coronary artery stent, initial encounter; E11.42 Type 2 diabetes mellitus with diabetic polyneuropathy; E11.22 Type 2 diabetes mellitus with diabetic chronic kidney disease; E11.65 Type 2 diabetes mellitus with hyperglycemia; D63.1 Anemia in chronic kidney disease; E78.49 Other hyperlipidemia; E78.1 Pure hyperglyceridemia; I25.10 Atherosclerotic heart disease of native coronary artery without angina pectoris; I48.0 Paroxysmal atrial fibrillation; E11.51 Type 2 diabetes mellitus with diabetic peripheral angiopathy without gangrene; F41.9 Anxiety disorder, unspecified; E78.5 Hyperlipidemia, unspecified; Y83.1 Surgical operation with implant of artificial internal device as the cause of abnormal reaction of the patient, or of later complication, without mention of misadventure at the time of the procedure; I50.9 Heart failure, unspecified; I25.2 Old myocardial infarction; Z99.2 Dependence on renal dialysis; Z79.899 Other long term (current) drug therapy; Z79.4 Long term (current) use of insulin; Z79.82 Long term (current) use of aspirin; Z82.49 Family history of ischemic heart disease and other diseases of the circulatory system; Z83.3 Family history of diabetes mellitus; Z95.5 Presence of coronary angioplasty implant and graft; Z90.49 Acquired absence of other specified parts of digestive tract; Z89.112 Acquired absence of left hand; Y92.89 Other specified places as the place of occurrence of the external cause
CPT/HCPCS: 36415; 71045; 80048; 82962; 83036; 83735; 83880; 84100; 84484; 93005; 93306; 93458; C1760; C1769; C1893; J1644; J1815; J2250; J3010; J3490; Q0163; Q9967